=== PATIENT | female | born 1975 | race African-American/Black ===

== ENCOUNTER 2016-05-09 08:29 | Inpatient (IN) ==
[2016-05-09] MEDS ORDERED: ACETAMINOPHEN/CODEINE 300-30 MG TABLET PO STA (09:22)
--- NOTE | 2016-05-09 09:24 | Emergency Department Note ---
Arrival - Arrival ED Nursing Triage Note: PT C/O CHEST WALL PAIN TO LEFT SIDE OF CHEST, WORSE WITH DEEP BREATHS AND PALPATION. ONSET SATURDAY NIGHT. PT HAD APPENDECTOMY BY DR HARRINGTON ON 04/28. PT DUE TO HAVE SUKUMAR OUT TODAY. ALL INCISIONS AND SUKUMAR ARE WELL APPROXIMATED WITH NO REDNESS OR DRAINAGE. NO DRAINAGE ON DRESSING. PT DENIES FEVER. Mode of Arrival: Stretcher Limitations: No Limitations Source: Patient - History of Present Illness Onset (ago): day(s) (2) Severity: moderate Quality: aching <Fareed Viramontes - Last Filed: 05/09/16 09:51> <Michael Arzola - Last Filed: 05/09/16 10:48> - Arrival Chief Complaint: Chest Pain Stated Complaint: CP Time Seen by Provider: 05/09/16 09:19 - History of Present Illness HPI Narrative: This is a 41-year-old black female who complains of left-sided chest discomfort that is worse with deep inspiration and palpation. She states onset was Saturday. Patient has recently had an appendectomy by Dr. Harrington on April 28 and is due to have her sukumar taken out today. Patient denies any fevers but states she has been sweating at night. No other problems noted or reported ( Fareed Viramontes) Allergies/Adverse Reactions: Allergies Allergy/AdvReac Type Severity Reaction Status Date / Time No Known Allergies Allergy Verified 05/09/16 08:40 Home Medications: Home Medications Medication Instructions Recorded Confirmed Type Ciprofloxacin Tab [Cipro Tab] 500 mg PO BID #14 tablet 05/03/16 Rx HYDROcodone/ACETAMIN 7.5-325 1 tablet PO Q6HR #20 tablet 05/03/16 Rx [[place] 7.5-325] Review of System - Review of System 12 point system: reviewed and no additional remarkable complaints except as stated - Review of System Constitutional: Present: as per HPI, night sweats. Absent: chills, diaphoresis , fever Respiratory: Present: as per HPI <Fareed Viramontes - Last Filed: 05/09/16 09:51> Medical,Surgical,& Family Hx - Surgical History Abdominal Surgeries: Surgical HX of: Appendectomy (04/28/2016) - Family History Family History: Reports;: Family Cancer (mom breast cancer), Family Diabetes ( mom), Family Hypertension (mom) Denies;: Family Anesthesia Reaction, Family Heart Disease, Family Psychiatric Problems, Family Stroke - Social History Smoking Status: Smoker, status unknown Frequency of Alcohol Use: None Type of Drug Use: None <Fareed Viramontes - Last Filed: 05/09/16 09:51> Exam - General General appearance: alert, in distress (mod) - Head Head exam: Present: atraumatic, normocephalic, normal inspection - Eye Eye exam: Present: normal appearance, PERRL, EOMI - ENT ENT exam: Present: normal exam - Neck Neck exam: Present: normal inspection, full ROM - Chest Chest inspection: Present: normal inspection, symmetric chest wall rise - Respiratory Respiratory exam: Present: normal lung sounds bilaterally - Cardiovascular Cardiovascular exam: Present: regular rate, normal rhythm, normal heart sounds - Abdominal Exam Abdominal exam: Present: soft, distention (mild), hypoactive bowel sounds, other (Op site looks to be healing well. Wylie are in good position, without fever, erythema or drainage) <Fareed Viramontes - Last Filed: 05/09/16 09:51> Vital Signs: Vital Signs Temperature 98.2 F 05/09/16 08:30 Pulse Rate 97 H 05/09/16 08:30 Respiratory Rate 16 05/09/16 08:30 Blood Pressure 161/106 05/09/16 08:30 O2 Sat by Pulse Oximetry 97 05/09/16 08:30 (Fareed Viramontes) (Michael Arzola) Course <Fareed Viramontes - Last Filed: 05/09/16 09:51> <Michael Arzola - Last Filed: 05/09/16 10:48> Course Narrative: Admit to the hospitalist. (Michael Arzola) - Reevaluation(s) Reevaluation #1: Reevaluation by me at 1025 revealed decreased breath sounds on the left. Patient was also tachycardic and had some abdominal tenderness worse on the left side. Bowel sounds were essentially not present. We will obtain a CAT scan of her abdomen to further evaluate. She will also be admitted to the hospitalist. (Michael Arzola) Results - Diagnostic Findings Procedure: Chest x-ray: image reviewed by me, report reviewed by me (Moderate left pleural eff.) <Fareed Viramontes - Last Filed: 05/09/16 09:51> - Labs CBC & BMP: 05/09/16 09:38 05/09/16 09:38 Lab Results: I have reviewed the patients labs - EKG EKG results: interpreted by TONIO BELTRAN, sinus rhythm <Michael Arzola - Last Filed: 05/09/16 10:48> Disposition <Fareed Viramontes - Last Filed: 05/09/16 09:51> Case discussed with: patient <Michael Arzola - Last Filed: 05/09/16 10:48> Clinical Impression: Pleural effusion, left, Status post appendectomy, Chest pain, Abdominal pain, rule out abdominal abscess Disposition: Still a Patient Condition: Guarded Additional Instructions: Admitted to the hospitalist.
--- NOTE | 2016-05-09 09:27 | EKG Report ---
Stationary ECG Study [facility] ER Test Date: 05/09/2016 8:30:52 AM Pat Name: MERY PACHECO Department: Room: Gender: F Dye Range Tender: : 1975 Requested by: Fareed Viramontes Order Number: [id number] Reading MD: GIFTY REYES Intervals [place] Rate: 84 P: 25 IA: 127 QRS: 10 QRSD: 86 T: 35 QT: 354 QTc: 395 Interpretive Statements SINUS RHYTHM Electronically Signed On 05-09-16 18:34:18 CLINICAL DATA PROGRAMMER by GIFTY REYES [email or web address]
--- NOTE | 2016-05-09 09:39 | XRay Report ---
PA and lateral chest. Indication: Chest pain. Comparison: Outside CT from April 28, 2016. The heart is normal in size. The pulmonary vasculature is normal. Scattered atelectasis has developed at the right lung base. There is now, significant atelectasis, and a moderate pleural effusion at the left lung base which was not present previously. There is gaseous distention of bowel. Impression: Development of prominent left basilar atelectasis and moderate left pleural effusion. Mild atelectasis has developed at the right lung base. Gaseous distention of bowel. PROCEDURE INTERPRETED AT [facility] DEPARTMENT OF RADIOLOGY Final Report Signed by: Dr. Sunshine Gallegos
[2016-05-09] MEDS ORDERED: LEVOFLOXACIN INJ 750 MG in PREMIX 1 EACH IV STA (09:49)
[2016-05-09 09:52] LABS: Basophils # 0.1 10*3/uL (0.0-0.2); Basophils % 0.3 % (0.0-0.8); Eosinophils % 0.2 % (0.00-10.9); Hematocrit 34.5 VOL% (35.7-47.0); Hemoglobin 11.4 GM/DL (12.0-16.0); Immature Granulocytes % 0.7 %; Immature Granulocytes Absolute 0.12 #; Lymphocytes # 1.8 10*3/uL (1.4-4.0); Mean Corpuscular Hemoglobin 25 PG (27-34); Mean Corpuscular Volume 74.5 FL (87-102); Mean Platelet Volume 9.1 FL (9.6-12.0); Monocytes # 1.4 10*3/uL (0.11-0.8); Monocytes % 7.5 % (1.7-12.7); Neutrophils % 81.3 % (38.7-73.9); Platelet Count 828 10*3/uL (130-400); Red Blood Count 4.63 10*6/uL (3.8-5.5); White Blood Count 18.5 10*3/uL (4.5-13.71)
[2016-05-09 09:56] LABS: Apearance,Urine CLEAR (Clear); Bacteria,Urine Occasional /HPF (Few); Bilirubin,Urine Negative (Negative); Blood, Urine Negative (Negative); Glucose,Urine (UA) Negative (Negative); Ketones,Urine 20 mg/dL (Negative); Mucus,Urine Occasional /LPF (Occasional); Nitrite,Urine Negative (Negative); Protein,Urine Negative; RBC,Urine 1 /HPF (0-4); Squamous Epithelial Cell,Urine Occasional /HPF (0-10); Urine Color Yellow (Yellow); Urine Specific Gravity 1.009 (1.001-1.035); Urine Urobilinogen < 2.0 EU/DL (0.2-1.0); WBC,Urine 1 /HPF (0-6)
[2016-05-09] MEDS ORDERED: LEVOFLOXACIN INJ 150 ML IV ONE (09:57)
[2016-05-09] MEDS ORDERED: ACETAMINOPHEN/CODEINE 300-30 MG TABLET ONE (09:58)
[2016-05-09 10:15] LABS: Calcium 8.4 MG/DL (8.5-10.1); Osmolality,Calculated 273.5 MOS/KG (273-304); Potassium 3.8 MMOL/L (3.5-5.1)
[2016-05-09] MEDS ORDERED: ONDANSETRON 4 MG/2 ML VIAL IV PRN (11:21)
--- NOTE | 2016-05-09 11:38 | CT Report ---
EXAM: CT chest PE study DATE: May 09, 2016 COMPARISON: None REASON: Left pleural effusion, generalized abdominal pain TECHNIQUE: Axial images of the chest were obtained after administration of 80 cc of Omnipaque 350 intravenous contrast. Coronal and sagittal reformatted images were also acquired. The study was performed per pulmonary embolism protocol. Total DLP for the CT chest and abdomen pelvis studies was 326.9 mGy*cm. FINDINGS: Pulmonary arteries: Evaluation of the segmental and subsegmental pulmonary arteries is limited in some regions by poor opacification and vascular crowding. However, no convincing pulmonary embolism is identified through the segmental pulmonary arteries. Vascular/heart: The thoracic aorta is normal in size without evidence of dissection. The heart is borderline prominent. No definite pericardial effusion is seen. Lymph nodes: No suspicious mediastinal, hilar or axillary adenopathy is identified. Other mediastinum: Otherwise unremarkable. Chest wall: There is anasarca. Lungs: There is a large amount of left pleural fluid but no significant right pleural fluid. Scattered opacities are present within both lungs, mainly within the lower lobes and lingula. This is especially prominent at the left lower lobe. This likely represents atelectasis, but there could also be pneumonia and pulmonary edema. No pneumothorax is identified. Of note, evaluation for a pulmonary nodule in this setting is difficult, and followup is recommended to confirm resolution. Bones: There is mild degenerative change at the thoracic spine, but no acute osseous process is seen. Upper abdomen: Please see the CT abdomen and pelvis study performed on the same day. IMPRESSION: 1. No evidence of pulmonary embolism. 2. Large left pleural effusion. 3. There are scattered opacities within both lungs, mainly within the lower lobes and lingula. This is especially prominent at the left lower lobe. These opacities likely represent atelectasis, but there could also be pneumonia and pulmonary edema. Followup is recommended to confirm resolution. 4. Borderline cardiomegaly. 5. Anasarca. PROCEDURE INTERPRETED AT [facility] DEPARTMENT OF RADIOLOGY Final Report Signed by: Dr. Dashawn Suárez
--- NOTE | 2016-05-09 11:51 | CT Report ---
Referring physician: Michael Arzola EXAM: CT abdomen and pelvis without contrast DATE: May 09, 2016 COMPARISON: Outside CT abdomen and pelvis without contrast April 28, 2016, CT chest PE study May 09, 2016 REASON: Generalized abdominal pain TECHNIQUE: Axial images of the abdomen and pelvis were obtained without the use of contrast. Coronal and sagittal reformatted images were also provided. FINDINGS: Lower thorax: There is a large amount of left pleural fluid and prominent scattered opacities within both lower lung zones. Please see the CT chest study performed on the same day for further details. ABDOMEN: Liver: There is a 0.9 cm hypodensity within the right hepatic lobe on image 36. Characterization is limited by the lack of IV contrast, but this likely represents a cyst. Gallbladder and bile ducts: The gallbladder is unremarkable. No biliary duct dilatation is present. Pancreas: The pancreas is poorly evaluated due to the lack of IV contrast and adjacent unopacified bowel. It is unremarkable as visualized. Spleen: Unremarkable. Adrenals: Unremarkable. Kidneys and ureters: No hydronephrosis is present, and no renal or ureteral calculi are identified. PELVIS: Bladder: Unremarkable. Reproductive: Evaluation of the uterus is limited, but it appears to be enlarged which may be related to uterine fibroids. Further evaluation could be performed with ultrasound. The ovaries are not identified and are likely obscured. ABDOMEN AND PELVIS: Bowel: There is mild air and moderate stool within the colon, mainly within the right colon. There are also a few prominent loops of small bowel. This could represent partial bowel obstruction or mild ileus. Mild ileus is favored. There is now surgical change within the right lower quadrant, and the patient is likely status post interval appendectomy. There is mild free fluid within the lower abdomen and pelvis as well as mesenteric edema. Evaluation for an abscess is limited by the lack of contrast, but no convincing abscess formation is seen. Evaluation for free air is also limited by unopacified loops of bowel, but no large quantity of free air is identified in this postsurgical patient. Appendix: The appendix is not identified, and the patient maybe status post appendectomy. Vasculature: The abdominal aorta is normal in size. Peritoneum: There is mild free fluid and mesenteric edema within the lower abdomen and pelvis as described above. Lymph nodes: Evaluation for adenopathy is limited by the lack of contrast. No obvious adenopathy is identified. Abdominal/pelvic wall: There is moderate anasarca, and surgical change is seen at the anterior abdominal and pelvic wall. There is a minimal fat-containing umbilical hernia. Bones: No acute osseous process is identified. IMPRESSION: 1. There is surgical change within the right lower quadrant, suggesting interval appendectomy. Mild free fluid and mesenteric edema are seen within the lower abdomen and pelvis. Evaluation for an abscess is limited by the lack of contrast, but no obvious abscess formation is seen. Evaluation for minimal free air is also difficult, but no large quantity of free air is identified in this postsurgical patient. 2. There is mild air and moderate stool within the colon, mainly within the right colon. There are also a few prominent loops of small bowel. This could represent partial bowel obstruction or mild ileus. Mild ileus is favored. 3. Moderate anasarca. 4. Probable right hepatic cyst. 5. The uterus is enlarged, possibly Secondary to uterine fibroids. Further evaluation could be performed with ultrasound. 6. Large amount of left pleural fluid and scattered opacities within both lower lung zones. Please see the CT chest PE study performed on the same day for further details. The CT exam was performed using one or more of the following dose reduction techniques: Automated exposure control and adjustment of the mA and/or kV according to patient size. PROCEDURE INTERPRETED AT [facility] DEPARTMENT OF RADIOLOGY Final Report Signed by: Dr. Dashawn Suárez
[2016-05-09] MEDS ORDERED: INFLUENZA VIRUS VACCINE 0.5 ML SYRINGE IM ONE (13:04)
[2016-05-09] MEDS: SODIUM CHLORIDE 0.9% 1,000 ML IV SCH (13:05)
[2016-05-09] MEDS ORDERED: ENOXAPARIN 40 MG/0.4 ML SYRINGE ONE (13:08)
[2016-05-09] MEDS: PIPERACILLIN/TAZOBACTAM 3,375 MG in SODIUM CHLORIDE 0.9% 100 ML IV SCH ×2 (13:10→21:31)
--- NOTE | 2016-05-09 13:14 | Hospitalist History & Physical ---
Assessment and Plan - Time spent with patient Time spent with patient: Greater than 30 minutes (due to assessment, plan and documentation) (1) Abdominal pain Status: Acute Current Visit: Yes (2) Chest pain Status: Acute Current Visit: Yes (3) Status post appendectomy Status: Acute Current Visit: Yes (4) Pleural effusion, left Status: Acute Assessment and plan: admit and closely monitor NPO for now consult to Dr. Lucio, who performed the appendectomy, to follow for possible illeus blood and urine cultures Start on IV Vanc and Zosyn Check Flu and C-diff hydrate well with NS at 125 DVT prophylaxis venous dopplers routine labs in AM PRN meds further plan and addendum to follow per Dr. Schafer Current Visit: Yes History of Present Illness Chief complaint: shortness of breath, left chest pain, abominal distention History of present illness: Ms. Graham is a 41 year old female who presents to the ER today with shortness of breath and left sided chest pain, primarily under her left breast. She states that this started yesterday and has progressively worsened. She noticed herself being severely short of breath with minimal exertion. She had a laproscopic appendectomy on 04/[address] Lucio. States she has been doing fair since, eating and passing gas. She denies having a normal BM since her surgery, but does say that she has past some thin mucus like stool a few times. We will check this for C-diff. she seems distended on exam and is tender, worse around incision sites. She denies headache, fever, chills, vomiting, diarrhea, dysuria or edema. She denies any prior medical history. Prior to her appy she had only had surgery on her ear. She does not drink or do drugs. She was a daily smoker but has not smoked since her surgery earlier this month. She is noted to have increased respirations but she is maintaining an oxygen saturation of 96% on room air. Chest xray shows a large left pleural effusion, chest ct confirms. she is also noted to have a possible mild illeus on CT of Abdomen. She is awake and alert at this time, no acute distress at present. Home Medications Medication Instructions Recorded Confirmed Type Ciprofloxacin Tab [Cipro Tab] 500 mg PO BID #14 tablet 05/03/16 05/09/16 Rx HYDROcodone/ACETAMIN 7.5-325 1 tablet PO Q6HR #20 tablet 12/22/16 12/28/16 Rx [[place] 7.5-325] Allergies Allergy/AdvReac Type Severity Reaction Status Date / Time No Known Allergies Allergy Verified 05/09/16 08:40 Medical,Surgical,& Family Hx - Surgical History Abdominal Surgeries: Surgical HX of: Appendectomy (04/28/2016) - Family History Family History: Reports;: Family Cancer (mom breast cancer), Family Diabetes ( mom), Family Hypertension (mom) Denies;: Family Anesthesia Reaction, Family Heart Disease, Family Psychiatric Problems, Family Stroke - Social History Smoking Status: Smoker, status unknown Frequency of Alcohol Use: None Type of Drug Use: None Marital Status: Single Lives With:: Alone Functional capacity: independent ambulation 12 point system: reviewed and no additional remarkable complaints except as stated Exam - Constitutional Vitals: Period Temp Pulse Resp BP Sys/Agudelo Pulse Ox Last 24 Hr 98.7 F 90-108 16-21 143-151/90-103 93-97 General appearance: normal weight, no acute distress - Head Head exam: Present: normal inspection, normocephalic - Eye Eye exam: Present: EOMI. Absent: scleral icterus Pupils: Present: KENDRICK, normal accommodation - ENT ENT exam: Present: normal exam, normal oropharynx - Neck Neck exam: Present: normal inspection. Absent: lymphadenopathy - Respiratory Respiratory exam: Present: decreased breath sounds (on left ). Absent: wheezes - Cardiovascular Cardiovascular exam: Present: regular rate and rhythm. Absent: tachycardia - GI/Abdominal GI/Abdominal exam: Present: distended, hypoactive bowel sounds, tenderness ( around incisional sites) - Extremities Exam Extremities exam: Present: normal inspection, full ROM. Absent: edema - Back Exam Back exam: Present: normal inspection. Absent: muscle spasm - Neurological Exam Neurological exam: Present: alert, oriented X3 - Psychiatric Psychiatric exam: Present: normal affect, normal mood - Skin Skin exam: Present: normal color, warm, dry Results - Labs CBC & BMP: 05/09/16 09:38 05/09/16 09:38 Lab Results: I have reviewed the past 24 hour labs - Diagnostic Findings Procedure: CT Abdomen and Pelvis: report reviewed by me (Linda there are surgical changes in the right lower quadrant, suggesting interval appendectomy. Mild free fluid and mesenteric edema are seen within lower abdomen and pelvis. Evaluation for an abscess is limited by the lack of contrast, but no obvious abscess formation is seen. Evaluation for minimal free air is also difficult, but no large quantity of free air is admitted from the postsurgical patient. There is mild area moderate stool within the colon, mainly within the right colon. There are also a few prominent loops of small bowel. This could represent partial small bowel structural noted or. mild ileus mild ileus is favored. 3. Moderate anasarca. 4. Probable right hepatic cyst.. The uterus is enlarged, possibly secondary to uterine fibroids. Further evaluation could be performed ultrasound. 6. Large amount of left pleural fluid and scattered opacities within both lower lung zones. Please see the CT chest PE study performed on the same day for further details.), CT - chest: report reviewed by me (1. No evidence of pulmonary emboli 2. Left large pleural effusion 3. There are scattered opacities within both lungs, mainly in lower lobes and lingula. This is especially prominent at the left lower lobe. His opacities likely represent atelectasis, but there could also be pneumonia and pulmonary edema. Follow-up is recommended to confirm resolution 4. Borderline cardiomegaly 5. Anasarca)
--- NOTE | 2016-05-09 14:06 | Ultrasound Report ---
Referring physician: Alecia Holmes Exam: Bilateral lower extremity venous ultrasound Date: May 09, 2016 Comparison: None Reason: Shortness of breath, recent surgery Technique: Duplex scan of the bilateral lower extremity veins was performed using B-Mode/grayscale imaging and Doppler spectral analysis and color flow. Ultrasound images were captured and stored. Findings: There is no evidence of thrombus within the left or right common femoral veins, saphenous veins, superficial femoral veins or popliteal veins. Normal compression and augmentation are present throughout. Normal color flow and spectral analysis are observed. Impression: No evidence of deep venous thrombosis within either lower extremity. PROCEDURE INTERPRETED AT [facility] DEPARTMENT OF RADIOLOGY Final Report Signed by: Dr. Dashawn Suárez
[2016-05-09] MEDS: MORPHINE 2 MG/1 ML SYRINGE IV PRN ×2 (15:44→21:29)
[2016-05-09] MEDS: VANCOMYCIN INJ 750 MG in SODIUM CHLORIDE 0.9% 250 ML IV SCH (17:14)
--- NOTE | 2016-05-09 18:09 | General Surgery Consult Note ---
Assessment and Plan - Time spent with patient Time spent with patient: Less than 30 minutes (1) Pleural effusion, left Status: Acute Assessment and plan: Impression: 1. Pleural effusion of the left posse secondary to an atelectatic left lobe 2. Status post lap scopic appendectomy 3. No evidence of abdominal abscess 4. Severe constipation. Plan: 1. Get pulmonary look at her for possible bronchoscopy and thoracentesis 2. Attempt to it her bowels functioning at this time. Current Visit: Yes History of Present Illness Chief complaint: some left chest pain and shortness of breath History of present illness: Ms. Graham is a 41 year old female Afro-[place] female who is about 2 weeks from a lap scopic appendectomy with a severely swollen appendix does gangrenous and ruptured at times surgery. She had a drain left in the pelvis for better than a week before was pulled when there was very little drainage present. She went home and no sign of any infection at this time but returned today because of some fever and left chest pain. She is scheduled come to the office became emergency room where chest x-ray showed a left pleural effusion. I was concerned about the possibility of this being an abscess under the diaphragm because of severity of the appendicitis. So a CT scan the abdomen and pelvis was performed which showed some constipation but no evidence of any abscess under the diaphragm. From what I, it looks like there could be an at atelectatic lobe on the lower lobe of the left with some pleural effusion associated with that. We'll get pulmonary to look at her for possible bronchoscopy and possible thoracentesis. At this point observation and IV fluids as well as working on getting her bowels functioning is her main priority. Home Medications Medication Instructions Recorded Confirmed Type Ciprofloxacin Tab [Cipro Tab] 500 mg PO BID #14 tablet 05/03/16 05/09/16 Rx HYDROcodone/ACETAMIN 7.5-325 1 tablet PO Q6HR #20 tablet 05/03/16 05/09/16 Rx [[place] 7.5-325] Allergies Allergy/AdvReac Type Severity Reaction Status Date / Time No Known Allergies Allergy Verified 05/09/16 08:40 Medical,Surgical,& Family Hx - Surgical History Abdominal Surgeries: Surgical HX of: Appendectomy (04/28/2016) - Family History Family History: Reports;: Family Cancer (mom breast cancer), Family Diabetes ( mom), Family Hypertension (mom) Denies;: Family Anesthesia Reaction, Family Heart Disease, Family Psychiatric Problems, Family Stroke - Social History Smoking Status: Smoker, status unknown Frequency of Alcohol Use: None Type of Drug Use: None 12 point system: reviewed and no additional remarkable complaints except as stated Exam - Constitutional Vitals: Period Temp Pulse Resp BP Sys/Agudelo Pulse Ox Last 24 Hr 98.7 F-99.6 F 90-108 16-21 143-151/82-103 93-97 General appearance: mild distress - Head Head exam: Present: normal inspection - ENT ENT exam: Present: normal exam - Neck Neck exam: Present: normal inspection - Respiratory Respiratory exam: Present: decreased breath sounds (on the left base), rales, rhonchi - Cardiovascular Cardiovascular exam: Present: RRR - GI/Abdominal GI/Abdominal exam: Present: distended, hypoactive bowel sounds. Absent: tenderness - Extremities Exam Extremities exam: Present: normal inspection - Neurological Exam Neurological exam: Present: alert, oriented X3, CN II-XII intact - Skin Skin exam: Present: normal color, warm, dry Results - Labs CBC & BMP: 05/09/16 09:38 05/09/16 09:38 Lab Results: I have reviewed the past 24 hour labs Specialty Discharge - Follow Up or Referrals - Discharge Medications No Action Ciprofloxacin Tab [Cipro Tab] 500 mg PO BID #14 tablet HYDROcodone/ACETAMIN 7.5-325 [[place] 7.5-325] 1 tablet PO Q6HR #20 tablet
[2016-05-09] MEDS ORDERED: BISACODYL 5 MG TABLET PO ONE (18:13)
[2016-05-09 19:56] LABS: Bilirubin,Total 0.5 MG/DL (0.2-1.0); Calcium 7.9 MG/DL (8.5-10.1); Osmolality,Calculated 278.1 MOS/KG (273-304); Potassium 3.3 MMOL/L (3.5-5.1); Total Protein 6.7 G/DL (6.4-8.3)
[2016-05-09] MEDS: ENOXAPARIN 40 MG/0.4 ML SYRINGE SUBCUT SCH (21:33)
[2016-05-09] MEDS: DOCUSATE SODIUM 100 MG CAPSULE PO SCH (21:45)
[2016-05-10] MEDS: MORPHINE 2 MG/1 ML SYRINGE IV PRN (01:22)
[2016-05-10] MEDS: VANCOMYCIN INJ 750 MG in SODIUM CHLORIDE 0.9% 250 ML IV SCH ×2 (03:29→17:25)
[2016-05-10] MEDS: PIPERACILLIN/TAZOBACTAM 3,375 MG in SODIUM CHLORIDE 0.9% 100 ML IV SCH ×3 (05:19→20:12)
[2016-05-10 05:20] LABS: Basophils % 0.2 % (0.0-0.8); Eosinophils # 0.1 10*3/uL (0.0-0.87); Eosinophils % 0.8 % (0.00-10.9); Hematocrit 29.6 VOL% (35.7-47.0); Hemoglobin 9.5 GM/DL (12.0-16.0); Immature Granulocytes % 0.5 %; Immature Granulocytes Absolute 0.07 #; Lymphocytes # 1.8 10*3/uL (1.4-4.0); Lymphocytes % 14.3 % (21.3-54.2); Mean Corpuscular HGB Conc 32.1 GM/DL (32-36); Mean Corpuscular Hemoglobin 24 PG (27-34); Mean Corpuscular Volume 75.9 FL (87-102); Mean Platelet Volume 9.4 FL (9.6-12.0); Monocytes # 1.5 10*3/uL (0.11-0.8); Monocytes % 11.7 % (1.7-12.7); Neutrophils # 9.3 10*3/uL (1.4-7.4); Neutrophils % 72.5 % (38.7-73.9); Platelet Count 869 10*3/uL (130-400); Red Cell Distribution Width 18.5 % (9.3-17.3); White Blood Count 12.9 10*3/uL (4.5-13.71)
[2016-05-10 05:46] LABS: Calcium 8.1 MG/DL (8.5-10.1); Osmolality,Calculated 278.1 MOS/KG (273-304); Potassium 4.1 MMOL/L (3.5-5.1)
--- NOTE | 2016-05-10 07:24 | Physician Query Form ---
CLICK EDIT DOCUMENT TO SELECT QUERY ANSWER --> OK --> SIGN Raine Vega RN, CCDS Certified Clinical [place] W) [phone] (f) [phone] [email or web address] PROVIDERS: Make your selection(s) from the choices in EACH section by typing an "x" and enter comments in the comment section. Please use your independent medical judgment in providing your response. This request does not imply that any particular answer is desired or expected. CLINICAL INDICATORS: (Providers should not edit this section) The medical record indicates that the patient was admitted with a Pleural Effusion and recently had appendectomy on the . In your clinical opinion can you please clarify if the pleural effusion is ? Please clarify the following: ( ) The above is an inherent, integral or routinely potential/expected occurrence of surgery (not a complication) ( ) The above was an inadvertent, unintended, iatrogenic, or unexpected occurrence of surgery (complication) ( ) The above is a complication but not due to the surgery, specify cause: ( ) Other, please specify: (x ) Clinically unable to determine COMMENTS: Use of terms such as suspected, likely, or probable (associated with a specific diagnosis that is being evaluated, monitored, or treated as if it exists) are acceptable and can be restated in the discharge summary if not ruled out. MTDD
--- NOTE | 2016-05-10 07:37 | XRay Report ---
XR chest 1V portable Indication: SOB Comparison: Chest x-ray dated May 09, 2016 Technique: Single frontal view of the chest Findings: Cardiomediastinal silhouette remains partially obscured. Continued moderate left-sided pleural effusion with probable underlying atelectasis/consolidation. Minimal right basilar atelectasis. Osseous and surrounding soft tissue structures appear grossly unchanged. IMPRESSION: No significant interval change. PROCEDURE INTERPRETED AT [facility] DEPARTMENT OF RADIOLOGY Final Report Signed by: Dr René Gaines
--- NOTE | 2016-05-10 08:15 | General Surgery Progress Note ---
Assessment and Plan - Time spent with patient Time spent with patient: Less than 30 minutes (1) Pleural effusion, left Status: Acute Assessment and plan: Impression: 1. Pleural effusion of the left posse secondary to an atelectatic left lobe 2. Status post lap scopic appendectomy 3. No evidence of abdominal abscess 4. Severe constipation. Plan: 1. Get pulmonary look at her for possible bronchoscopy and thoracentesis 2. Attempt to it her bowels functioning at this time. 05/10/2016 Patient is stable still complains of some discomfort on the left side but no significant shortness of breath. Labs look good and stable at this time. Abdomen is soft still mildly distended and bowel sounds are present. Incisions are clean and dry. Still no good bowel movement even with the Dulcolax tabs. Have consulted pulmonary to look at a possibility of bronchoscopy because of the CT scan results looking like it could be atelectatic changes of the left lower lobe. I think be good be sure that there is no mucous plugs blocking it off. Once they have completed this and we need to be a little more aggressive with get her bowels functioning with some enemas and some strong laxatives. Current Visit: Yes Subjective Patient reports: Present: still having pain, tolerating liquids well, no bowel movement, afebrile Exam - Constitutional Vitals: Period Temp Pulse Resp BP Sys/Agudelo Pulse Ox Last 24 Hr 97.8 F-99.6 F 90-108 16-28 132-151/74-103 93-100 General appearance: mild distress - Head Head exam: Present: normal inspection - ENT ENT exam: Present: normal exam - Neck Neck exam: Present: normal inspection - Respiratory Respiratory exam: Present: decreased breath sounds (on the left), rales - Cardiovascular Cardiovascular exam: Present: RRR - GI/Abdominal GI/Abdominal exam: Present: distended (mild), hypoactive bowel sounds, soft, other (incisions are clean and dry.). Absent: tenderness - Extremities Exam Extremities exam: Present: normal inspection - Back Exam Back exam: Present: normal inspection - Neurological Exam Neurological exam: Present: alert, oriented X3, CN II-XII intact - Skin Skin exam: Present: normal color, warm, dry Results - Labs CBC & BMP: 05/10/16 04:37 05/10/16 04:37 Lab Results: I have reviewed the past 24 hour labs Specialty Discharge - Follow Up or Referrals - Discharge Medications No Action Ciprofloxacin Tab [Cipro Tab] 500 mg PO BID #14 tablet HYDROcodone/ACETAMIN 7.5-325 [[place] 7.5-325] 1 tablet PO Q6HR #20 tablet
[2016-05-10] MEDS: DOCUSATE SODIUM 100 MG CAPSULE PO SCH ×2 (10:11→20:11)
--- NOTE | 2016-05-10 11:16 | Pulmonology Consult Note ---
History of Present Illness Chief complaint: Large symptomatic left pleural effusion History of present illness: Ms. Graham is a 41 year old black female from [place] [facility]. I been asked to see her in pulmonary consultation. This patient had removal of a gangrenous appendix on 04/28/2016. Surgery was done by Dr. Lucio. The operative record was removed. There was some spillage of the appendiceal contents. Appendix was very large and swollen and gangrenous. Patient did well postop and was discharged home in good condition. The patient is admitted with left pleuritic chest pain she has a very large left pleural effusion. She complains of shortness of breath because she has knifelike pain when she takes a deep breath. She denies a cough. She says she has not had any infection. She is producing no sputum. There is been no hemoptysis. She also complains of some abdominal pain. This tends to be upper abdomen. Seems to be localized to the left. There is no mass-effect. There is no rebound. Patient does have what appears to be an ileus. The remainder of her review of systems is negative. Allergies. None Home medicines. See below. Patient takes no medicines on a regular basis. Past history. Appendectomy 04/28/2016. CT at that time specifically said no pleural effusions were seen over the lower chest. She did not have a chest x- ray. She apparently has a very large uterus. See report for additional detail. No other known medical problems. Social history. Patient is a full-time employee at [employer]. She smokes less than a pack of cigarettes per day and says she quit smoking 04/28/2016. Family history. Not obtained. CT of the chest done 05/09/2016 has been reviewed. I agree with the interpretation. 1. No pulmonary embolus. 2. Large left pleural effusion. 3. Scattered opacities in both lungs mainly in the lower lungs in the lingula. These are especially prominent left lower lung. Radiologist Dr. Suárez said that these opacities likely represent atelectasis but they could represent pneumonia or pulmonary edema. Follow-up was recommended. 4. Borderline cardiomegaly cardiomegaly 5. Anasarca CT of the abdomen and pelvis. 05/09/2016 1. Surgical changes in the right lower quadrant. Mild free fluid and mesenteric edema in the lower abdomen and pelvis. Evaluation for abscess was limited by lack of contrast. Evaluation for minimal free air was difficult. 2. Mild AR and moderate stool in the colon mainly in the right colon. A few prominent loops of small bowel which could represent a partial bowel obstruction or mild ileus 3. Moderate anasarca 4. Right hepatic cyst 5. Uterus is enlarged. Possibly secondary to uterine fibroids. Further evaluation could be performed with ultrasound. 6. Large amount of left pleural fluid and scattered opacities in both lower lungs zones. Doppler venograms of the lower extremities. 05/09/2016. No deep venous thrombophlebitis. CT of the abdomen and lower chest done 04/28/2016. Acute appendicitis. Report says no pleural fluid seen. Lab. Electrolytes normal. Creatinine is 0.6. BUN is 4. Urinalysis shows no infection. Admit white count was 18,500 with 81 segs and 10 lymphs. This is now decreased to 12,900 with 72.5 segs and 14.3 lymphs and 12 monocytes H&H is 9.5/29.6 with decreased indices and increased red blood cell distribution with. Platelet count is 869,000. Mean platelet volume is low at 9.4. Vital signs. See below Psychiatric. Oriented 3. General. Moderate amount of pain secondary left pleural effusion Eyes face salivary glands lips and tongue are normal. Neck. Symmetrical. No meningismus Lymphatics. No submandibular cervical supraclavicular adenopathy. Arterial and venous exam neck upper and lower extremities are normal. Neurological. Cranial nerves are intact long track motor functions intact. Sensory exam was not done. Gait was not tested. Chest. Splints to the left. Breath sounds are clear Heart. Heart sounds are abnormal. This may be a midsystolic click but I am not sure. Abdomen. Rare bowel sounds. Mild generalized tenderness that might localized to the left upper quadrant. See Dr. Lucio's note. and rectal deferred Extremities. No evidence of deep venous thrombophlebitis. Skin of the face arms and feet show no cancerous or infectious lesions. No other areas were examined except the abdominal surgical wound which appeared to be healing properly. The remainder the physical exam was noncontributory. Impression. 1. Acute left pleural effusion. Etiology undetermined. Patient could have had pneumonia and this could be a parapneumonic effusion but she denies any symptoms of pneumonia. This effusion has developed since CT of the abdomen done 04/28/2016. I think we have to watch for left upper quadrant intra- abdominal abscess. Keep in mind entity such as pancreatitis. 2. Abnormal heart sounds. Etiology undetermined. 3. Large uterus thought to be secondary to fibroids. May eventually need additional workup 4. Tobacco abuse. Stop smoking 04/28/2016. 5. Surgical removal of gangrenous appendix 04/28/2016. Plan. 1. Therapeutic and diagnostic thoracentesis. Patient should have studies sent for cytology, CBC, total protein, LDH, glucose, Gram stain, bacterial cultures, amylase and lipase. 2. Echocardiogram 3. At this point it does not look like the patient needs a fiberoptic bronchoscopy but I will reevaluate with follow-up exam follow-up chest x-ray. 4. Amylase and lipase. 5. BNP 6. See orders Home Medications Medication Instructions Recorded Confirmed Type Ciprofloxacin Tab [Cipro Tab] 500 mg PO BID #14 tablet 05/03/16 05/09/16 Rx HYDROcodone/ACETAMIN 7.5-325 1 tablet PO Q6HR #20 tablet 05/03/16 05/09/16 Rx [[place] 7.5-325] Allergies Allergy/AdvReac Type Severity Reaction Status Date / Time No Known Allergies Allergy Verified 05/09/16 08:40 Exam (Pulmonay) H&P - Constitutional Vitals: Period Temp Pulse Resp BP Sys/Agudelo Pulse Ox Last 24 Hr 97.8 F-99.6 F 90-108 16-28 132-151/74-103 93-100 Medical,Surgical,& Family Hx - Surgical History Abdominal Surgeries: Surgical HX of: Appendectomy (04/28/2016) - Family History Family History: Reports;: Family Cancer (mom breast cancer), Family Diabetes ( mom), Family Hypertension (mom) Denies;: Family Anesthesia Reaction, Family Heart Disease, Family Psychiatric Problems, Family Stroke - Social History Smoking Status: Smoker, status unknown Frequency of Alcohol Use: None Type of Drug Use: None Results - Labs CBC & BMP: 05/10/16 04:37 05/10/16 04:37 Specialty Discharge - Follow Up or Referrals - Discharge Medications No Action Ciprofloxacin Tab [Cipro Tab] 500 mg PO BID #14 tablet HYDROcodone/ACETAMIN 7.5-325 [[place] 7.5-325] 1 tablet PO Q6HR #20 tablet
[2016-05-10 13:06] LABS: % Iron Saturation 5.3 % (18-50); Ferritin 117.9 ng/ml (8-252)
[2016-05-10] MEDS: SODIUM CHLORIDE 0.9% 1,000 ML IV SCH (13:15)
--- NOTE | 2016-05-10 13:59 | ECHO Report ---
Yari Graham Exam Date: 05/10/2016 13:05 Referring Physician: Technologist: Marcela JACKSON Age: 41 Ht (in): Wt (lb): Gender: F Exam Location: [facility] Echo Indications: SOB, Pleural effusion, abd. pain, chest pain, cardiomegaly BP: / HR: Rhythm: Sinus Technical Quality: IMPRESSIONS Normal chamber sizes 1+ concentric LVH Normal LV systolic function with ejection fraction estimated to be 60% without segmental wall motion abnormality Mild mitral valve thickening with 1+ mitral regurgitation Trace to mild tricuspid regurgitation with RVSP 12 mmHg plus RAP MEASUREMENTS (Male / Female) Normal Values 2D ECHO LV Diastolic Diameter PLAX 4.0 cm 4.2 - 5.9 / 3.9 - 5.3 cm LV Systolic Diameter PLAX 3.1 cm LV Fractional Shortening PLAX 22.6 % IVS Diastolic Thickness 1.4 cm 0.6 - 1.0 / 0.6 - 0.9 cm LVPW Diastolic Thickness 0.9 cm 0.6 - 1.0 / 0.6 - 0.9 cm RV Internal Dim ED PLAX 2.1 cm Aortic Root Diameter 2.7 cm LA Systolic Diameter LX 3.8 cm 3.0 - 4.0 / 2.7 - 3.8 cm DOPPLER TR Peak Velocity 176.0 cm/s TR Peak Gradient 12.4 mmHg FINDINGS Left Ventricle Moderately increased septal wall thickness. Normal left ventricular size and systolic function, left ventricular ejection fraction is estimated a Right Ventricle Normal right ventricular size and systolic function. Right Atrium Normal right atrial size. Left Atrium Normal left atrial size. Mitral Valve Mildly thickened mitral valve with mild mitral regurgitation. Aortic Valve Aortic valve sclerosis without stenosis or regurgitation. Tricuspid Valve Morphologically normal tricuspid valve. Trace to mild tricuspid valve regurgitation. Tricuspid regurgitation velocities suggest a PAP of 12.4 mmHg + RAP. Pulmonic Valve Morphologically normal pulmonic valve. Pericardium No pericardial effusion. + pleural effusion. Aorta Normal size aortic root and proximal ascending aorta. Rohit Churchill (Electronically Signed) Final Date: 10 May 2016 13:58
--- NOTE | 2016-05-10 15:15 | XRay Report ---
XR chest post procedure Indication: Status post thoracentesis. Post procedure chest radiograph, 2 views: Inspiratory and expiratory views of the chest were obtained. Small left pleural effusion persists with elevation left hemidiaphragm noted. No pneumothorax shown. There is mild right basilar atelectasis. Heart size is normal. Impression: No evidence complication following left thoracentesis. PROCEDURE INTERPRETED AT [facility] DEPARTMENT OF RADIOLOGY Final Report Signed by: Jorje Angel M.D.
--- NOTE | 2016-05-10 15:16 | Ultrasound Report ---
US thoracentesis Indication: Left pleural effusion. ULTRASOUND-GUIDED THORACENTESIS Description: A formal timeout was performed. Maximum sterile barrier technique was used. A left pleural effusion was identified with ultrasound. The left back was prepped and draped in sterile fashion. Under sonographic guidance, a 6 [place] pigtail catheter was advanced into the effusion using trocar technique. A captured sonographic image documents needle position. The needle was removed. Through the catheter, we obtained a total of 1000 cc of straw-colored, clear fluid. The catheter was removed. A bandage was placed at the puncture site. The patient tolerated the procedure well. Chest radiograph is pending. Impression: Ultrasound-guided thoracentesis. PROCEDURE INTERPRETED AT [facility] DEPARTMENT OF RADIOLOGY Final Report Signed by: Jorje Angel M.D.
--- NOTE | 2016-05-10 16:10 | Hospitalist Progress Note ---
Assessment and Plan (1) Leukocytosis Status: Acute Assessment and plan: 1)elevated WBC- source not clear, concern for abscess beneath diaphragm or pneumonia. On antibiotics, WBC down this morning. afebrile. 2)recent appendectomy- constipated since- enema today may relieve her abdominal pain. 3)Left pleural effusion- fluid analysis, gr stain, culture, pending. appeared transudative. pleuritic chest pain should improve as effusion resolves. Current Visit: Yes (2) Pleural effusion, left Status: Acute Current Visit: Yes (3) Status post appendectomy Status: Acute Current Visit: Yes (4) Abdominal pain Status: Acute Current Visit: Yes Hospitalist: Subjective Interval history: Ms Graham was doing well when I saw her this morning and says she feels a little better. She subsequently had thoracentesis with 1 L of straw colored clear fluid drained. Enema ordered to address her constipation/ileus. Exam - Constitutional Vitals: Period Temp Pulse Resp BP Sys/Agudelo Pulse Ox Last 24 Hr 97.8 F-99.3 F 96-116 16-28 132-164/74-100 97-100 General appearance: no acute distress, under weight - Head Head exam: Present: normocephalic, atraumatic - Eye Eye exam: Present: EOMI. Absent: scleral icterus - Respiratory Respiratory exam: Present: clear to auscultation bilaterally (decreased breath sounds at left base) - Cardiovascular Cardiovascular exam: Present: regular rate and rhythm - GI/Abdominal GI/Abdominal exam: Present: normal bowel sounds, tenderness, soft - Extremities Exam Extremities exam: Absent: edema - Neurological Exam Neurological exam: Present: alert, oriented X3, CN II-XII intact. Absent: motor sensory deficit - Skin Skin exam: Present: warm, dry Results - Labs CBC & BMP: 05/10/16 04:37 05/10/16 04:37 Lab Results: I have reviewed the past 24 hour labs Specialty Discharge - Follow Up or Referrals - Discharge Medications No Action Ciprofloxacin Tab [Cipro Tab] 500 mg PO BID #14 tablet HYDROcodone/ACETAMIN 7.5-325 [[place] 7.5-325] 1 tablet PO Q6HR #20 tablet
[2016-05-10 17:02] LABS: Lymphocytes,Pleural Fluid 9 %; Neutrophils,Pleural Fluid 91 %
[2016-05-10 17:06] LABS: RBC,Pleural Fluid 4862 T/CUMM
[2016-05-10] MEDS: SODIUM PHOSPHATE ENEMA 133 ML BOTTLE RECTAL PRN (18:17)
[2016-05-10] MEDS: ENOXAPARIN 40 MG/0.4 ML SYRINGE SUBCUT SCH (20:11)
[2016-05-11] MEDS: VANCOMYCIN INJ 750 MG in SODIUM CHLORIDE 0.9% 250 ML IV SCH ×2 (04:27→17:00)
[2016-05-11] MEDS: MORPHINE 2 MG/1 ML SYRINGE IV PRN (04:33)
[2016-05-11 05:11] LABS: Basophils # 0.1 10*3/uL (0.0-0.2); Basophils % 0.5 % (0.0-0.8); Eosinophils # 0.1 10*3/uL (0.0-0.87); Eosinophils % 0.6 % (0.00-10.9); Hematocrit 29.5 VOL% (35.7-47.0); Hemoglobin 9.5 GM/DL (12.0-16.0); Immature Granulocytes % 0.6 %; Immature Granulocytes Absolute 0.08 #; Lymphocytes # 1.8 10*3/uL (1.4-4.0); Lymphocytes % 13.1 % (21.3-54.2); Mean Corpuscular HGB Conc 32.2 GM/DL (32-36); Mean Corpuscular Hemoglobin 24 PG (27-34); Mean Corpuscular Volume 75.6 FL (87-102); Mean Platelet Volume 9.2 FL (9.6-12.0); Monocytes # 1.8 10*3/uL (0.11-0.8); Monocytes % 12.5 % (1.7-12.7); Neutrophils # 10.2 10*3/uL (1.4-7.4); Neutrophils % 72.7 % (38.7-73.9); Platelet Count 995 10*3/uL (130-400); Red Cell Distribution Width 18.3 % (9.3-17.3)
[2016-05-11 05:53] LABS: Calcium 7.9 MG/DL (8.5-10.1); Osmolality,Calculated 278.1 MOS/KG (273-304)
[2016-05-11] MEDS: PIPERACILLIN/TAZOBACTAM 3,375 MG in SODIUM CHLORIDE 0.9% 100 ML IV SCH ×3 (06:42→21:23)
--- NOTE | 2016-05-11 08:06 | XRay Report ---
XR chest 2V Indication: Shortness of breath Comparison: Chest x-ray dated May 10, 2016 Technique: Frontal and lateral views of the chest Findings: Cardiomediastinal silhouette appears grossly unchanged. Interval increased left lower lung atelectasis/consolidation and pleural fluid which is small volume. There is continued elevation of left hemidiaphragm. Mild interval increased hazy opacification within the right lung base may reflect atelectasis or pneumonia. Osseous and surrounding soft tissue structures appear grossly unchanged. IMPRESSION: As above. PROCEDURE INTERPRETED AT [facility] DEPARTMENT OF RADIOLOGY Final Report Signed by: Dr René Gaines
[2016-05-11] MEDS: DOCUSATE SODIUM 100 MG CAPSULE PO SCH ×2 (08:14→20:22)
--- NOTE | 2016-05-11 09:31 | General Surgery Progress Note ---
Assessment and Plan - Time spent with patient Time spent with patient: Less than 30 minutes (1) Pleural effusion, left Status: Acute Assessment and plan: Impression: 1. Pleural effusion of the left posse secondary to an atelectatic left lobe 2. Status post lap scopic appendectomy 3. No evidence of abdominal abscess 4. Severe constipation. Plan: 1. Get pulmonary look at her for possible bronchoscopy and thoracentesis 2. Attempt to it her bowels functioning at this time. 05/10/2016 Patient is stable still complains of some discomfort on the left side but no significant shortness of breath. Labs look good and stable at this time. Abdomen is soft still mildly distended and bowel sounds are present. Incisions are clean and dry. Still no good bowel movement even with the Dulcolax tabs. Have consulted pulmonary to look at a possibility of bronchoscopy because of the CT scan results looking like it could be atelectatic changes of the left lower lobe. I think be good be sure that there is no mucous plugs blocking it off. Once they have completed this and we need to be a little more aggressive with get her bowels functioning with some enemas and some strong laxatives. 05/11/2016 Patient is progressing slowly with the temporal about 100. Her abdomen remains fairly soft with hypoactive bowel sounds now have had some bowel movements at this time. Clips are out in the abdomen is softer and we will go ahead and work on getting her bowels more functional. She continues to have some atelectatic changes of the left lower lobe but no bronchoscopy at this time. She's had thoracentesis but I don't think eschar make a big difference. Hope and pulmonary we'll look at doing a bronchoscopy soon to take get that lobe open. Current Visit: Yes Subjective Patient reports: Present: pain is less, tolerating a regular diet, bowel movement, fever Exam - Constitutional Vitals: Period Temp Pulse Resp BP Sys/Agudelo Pulse Ox Last 24 Hr 98.5 F-100.6 F 92-116 20-26 137-164/79-100 97-100 General appearance: mild distress - Head Head exam: Present: normal inspection - ENT ENT exam: Present: normal exam - Neck Neck exam: Present: normal inspection - Respiratory Respiratory exam: Present: decreased breath sounds (left chest), rales, rhonchi - Cardiovascular Cardiovascular exam: Present: RRR - GI/Abdominal GI/Abdominal exam: Present: hypoactive bowel sounds, soft. Absent: tenderness - Extremities Exam Extremities exam: Present: normal inspection - Neurological Exam Neurological exam: Present: alert, oriented X3, CN II-XII intact - Skin Skin exam: Present: normal color, warm, dry Results - Labs CBC & BMP: 05/11/16 03:37 05/11/16 03:37 Lab Results: I have reviewed the past 24 hour labs Specialty Discharge - Follow Up or Referrals - Discharge Medications No Action Ciprofloxacin Tab [Cipro Tab] 500 mg PO BID #14 tablet HYDROcodone/ACETAMIN 7.5-325 [[place] 7.5-325] 1 tablet PO Q6HR #20 tablet
[2016-05-11] MEDS ORDERED: MAGNESIUM CITRATE 300 ML BOTTLE PO ONE (09:32)
[2016-05-11] MEDS: MINERAL OIL 30 ML UDCUP PO SCH ×2 (10:29→17:00)
--- NOTE | 2016-05-11 12:14 | Pulmonology Progress Note ---
Pulmonary - PN: Subj Interval history: This is a 41-year-old black female who works at [employer] in [facility]. I saw her in pulmonary consultation 05/10/2016. She had been here 04/28/2016 with a gangrenous appendix was surgically removed by Dr. Lucio. There was some spillage of contents from the grossly swollen and gangrenous appendix. This patient presented this time with an ileus and a painful left pleural effusion. CT scan is abnormal showing a good bit of mesenteric edema. The patient had a thoracentesis on 05/10/2016. This was an exudate based on the proteins. Glucoses were the same as her blood glucoses and the pH was 8. This does not appear to be infected and probably originates from below the diaphragm. The patient's lung is reexpanded with removal of most of the pleural effusion. She does have some elevation of her left hemidiaphragm and this appears to be secondary to a large dilated stomach.05/11/2016. At the time of my consultation on 05/10/2016 I felt these were her main problems . 1. Acute left pleural effusion. Etiology undetermined. Patient could have had pneumonia and this could be a parapneumonic effusion but she denies any symptoms of pneumonia. This effusion has developed since CT of the abdomen done 04/28/2016. I think we have to watch for left upper quadrant intra- abdominal abscess. Keep in mind entity such as pancreatitis. Thoracentesis done 05/10/2016 showed an exudate without any evidence of infection. Cytologies , Gram stain, bacterial cultures are pending. 2. Abnormal heart sounds. Etiology undetermined. Echocardiogram done 2015 showed mild left ventricular hypertrophy ejection fraction of 60% and mild mitral regurgitation. 3. Large uterus thought to be secondary to fibroids. May eventually need additional workup 4. Tobacco abuse. Stop smoking 04/28/2016. 5. Surgical removal of gangrenous appendix 04/28/2016. Physical exam. Vital signs. See below General. No apparent distress talkative. Still some sharp pleuritic-like pains over the left lower chest but these are markedly improved. Psychiatric. Oriented 3 Neurologic. Cranial nerves are intact. Long track motor functions intact Eyes, face, salivary glands, lips and tongue are normal. Neck. Symmetrical. No meningismus Lymphatics. No submandibular cervical supraclavicular adenopathy. Chest. Clear Heart. Grade 1.5 over 6 systolic ejection murmur at the left sternal border. I do not hear radiation. Patient appears to have a midsystolic click Abdomen. Postsurgical. Slightly distended. Extremities. Nothing to suggest deep venous thrombophlebitis. 1.. Note the Doppler venograms of the lower extremities showed no evidence of deep venous thrombophlebitis. 2. Note CT of the chest showed no evidence of pulmonary emboli. The remainder of the physical exam is noncontributory. Plan. 1. Thoracentesis fluid is an exudate. Please check cytology, Gram stain, bacterial cultures. I do not think this is infected. Pleural fluid amylase and lipase were negative 2. I suspect the pleural effusion will shank turner to originate from something below the left diaphragm. Continue antibiotics. Watch for abscess. Admit white count was 18,500 with 81 segs. This is dropped to 14,000 with 73 segs, 13 lymphs, 12.5 monocytes. 3. Patient appears to have an ileus. This seems to be improving. Watch closely. She is a has a dilated stomach or dilated colon at the splenic flexure. 4. There is still a small amount of pleural effusion. There does not appear to be an infiltrate. What was seen on CT appears to be atelectasis secondary to pleural effusion. Benign nodules were noted. At the present time patient does not need a fiberoptic bronchoscopy. 5. Down [address] the patient will need follow-up chest x-ray. 6. This patient has an abnormal uterus. I am not sure whether not this is being followed. Exam (Progress Note) - Constitutional Vitals: Period Temp Pulse Resp BP Sys/Agudelo Pulse Ox Last 24 Hr 98.2 F-100.6 F 92-116 20-26 133-164/79-100 97-100 Results - Labs CBC & BMP: 05/11/16 03:37 05/11/16 03:37 Specialty Discharge - Follow Up or Referrals - Discharge Medications No Action Ciprofloxacin Tab [Cipro Tab] 500 mg PO BID #14 tablet HYDROcodone/ACETAMIN 7.5-325 [[place] 7.5-325] 1 tablet PO Q6HR #20 tablet
[2016-05-11] MEDS: SODIUM CHLORIDE 0.9% 1,000 ML IV SCH (12:52)
--- NOTE | 2016-05-11 13:46 | Hospitalist Progress Note ---
Assessment and Plan (1) Leukocytosis Status: Acute Assessment and plan: 1)elevated WBC- source not clear, concern for abscess beneath diaphragm or pneumonia. On antibiotics, WBC down this morning. afebrile. 2)recent appendectomy- constipated since- enema today may relieve her abdominal pain. 3)Left pleural effusion- fluid analysis, gr stain, culture, all look transudative. . pleuritic chest pain should improve as effusion resolves. try incentive spirometry to help with associated atelectasis. 4)ileus- good results with enema now drinking mag citrate. stomach distnded on CXR, but eating regular food for lunch so far. Current Visit: Yes (2) Pleural effusion, left Status: Acute Current Visit: Yes (3) Status post appendectomy Status: Acute Current Visit: Yes (4) Abdominal pain Status: Acute Current Visit: Yes Hospitalist: Subjective Interval history: Ms Graham is feeling a bit better today but still has pain with cough or deep insp on left chest/abdomen. She has been afebrile and WBC coming down. She is eating regular food for lunch. Good results from enema yesterday. Exam - Constitutional Vitals: Period Temp Pulse Resp BP Sys/Agudelo Pulse Ox Last 24 Hr 98.2 F-100.6 F 92-116 20-26 133-164/79-100 97-100 General appearance: no acute distress, under weight - Eye Eye exam: Present: EOMI. Absent: scleral icterus - Respiratory Respiratory exam: Present: clear to auscultation bilaterally - Cardiovascular Cardiovascular exam: Present: regular rate and rhythm - GI/Abdominal GI/Abdominal exam: Present: normal bowel sounds, soft - Extremities Exam Extremities exam: Absent: edema - Neurological Exam Neurological exam: Present: alert, oriented X3, CN II-XII intact. Absent: motor sensory deficit - Skin Skin exam: Present: warm, dry Results - Labs CBC & BMP: 05/11/16 03:37 05/11/16 03:37 Lab Results: I have reviewed the past 24 hour labs Specialty Discharge - Follow Up or Referrals - Discharge Medications No Action Ciprofloxacin Tab [Cipro Tab] 500 mg PO BID #14 tablet HYDROcodone/ACETAMIN 7.5-325 [[place] 7.5-325] 1 tablet PO Q6HR #20 tablet
--- NOTE | 2016-05-11 14:47 | Ultrasound Report ---
Referring Physician: Alecia Schafer Exam: US pelvic complete Date: May 11, 2016 Reason: Large uterus on CT Comparison: CT abdomen and pelvis without contrast May 09, 2016 Technique: Transabdominal grayscale ultrasound images of the pelvis were obtained. Ultrasound images were captured and stored. Findings: The uterus is anteverted and measures 12.1 x 9.1 x 9.1 cm. There is a large round heterogeneous mass at the anterior aspect of the uterus. This is concerning for a uterine fibroid with central necrosis and measures 6.6 x 5.9 x 5.5 cm. It could be intramural or submucosal. This probable fibroid obscures the endometrium. The right ovary measures 2.9 x 1.8 x 1.7 cm, and the left ovary measures 4.9 x 3.9 x 3.1 cm. There is a 1.6 x 1.6 x 1.4 cm simple cyst at the right ovary. Vascular flow is seen at both ovaries. There is a small amount of free fluid within the pelvis which appears complex. It could contain fluid debris or blood products. Impression: 1. 6.6 cm uterine fibroid. 2. Small amount of free fluid within the pelvis. This fluid has a complex appearance and could contain debris or blood products. 3. The left ovary is mildly enlarged, but a discrete ovarian lesion is difficult to identify. Vascular flow is seen at the left ovary. PROCEDURE INTERPRETED AT [facility] DEPARTMENT OF RADIOLOGY Final Report Signed by: Dr. Dashawn Suárez
[2016-05-11] MEDS: ENOXAPARIN 40 MG/0.4 ML SYRINGE SUBCUT SCH (20:22)
[2016-05-12] MEDS: MINERAL OIL 30 ML UDCUP PO SCH ×3 (01:27→16:54)
[2016-05-12] MEDS: VANCOMYCIN INJ 750 MG in SODIUM CHLORIDE 0.9% 250 ML IV SCH ×2 (04:10→16:51)
[2016-05-12 04:45] LABS: Basophils % 0.3 % (0.0-0.8); Eosinophils # 0.1 10*3/uL (0.0-0.87); Hematocrit 26.2 VOL% (35.7-47.0); Hemoglobin 8.3 GM/DL (12.0-16.0); Immature Granulocytes % 0.4 %; Immature Granulocytes Absolute 0.04 #; Lymphocytes # 1.9 10*3/uL (1.4-4.0); Lymphocytes % 19.6 % (21.3-54.2); Mean Corpuscular HGB Conc 31.7 GM/DL (32-36); Mean Corpuscular Hemoglobin 24 PG (27-34); Mean Corpuscular Volume 75.3 FL (87-102); Mean Platelet Volume 8.9 FL (9.6-12.0); Monocytes # 1.4 10*3/uL (0.11-0.8); Monocytes % 14.4 % (1.7-12.7); Neutrophils # 6.3 10*3/uL (1.4-7.4); Neutrophils % 64.3 % (38.7-73.9); Platelet Count 958 10*3/uL (130-400); Red Blood Count 3.48 10*6/uL (3.8-5.5); Red Cell Distribution Width 18.1 % (9.3-17.3); White Blood Count 9.7 10*3/uL (4.5-13.71)
[2016-05-12] MEDS: PIPERACILLIN/TAZOBACTAM 3,375 MG in SODIUM CHLORIDE 0.9% 100 ML IV SCH ×3 (05:56→20:54)
[2016-05-12 06:02] LABS: Elliptocytes 1+; Platelet Estimate Increased; Target Cells Few
[2016-05-12 06:03] LABS: Hypochromasia 1+
[2016-05-12] MEDS: DOCUSATE SODIUM 100 MG CAPSULE PO SCH ×2 (08:22→20:54)
--- NOTE | 2016-05-12 09:20 | Hospitalist Progress Note ---
Assessment and Plan - Time spent with patient Time spent with patient: Greater than 30 minutes (1) Leukocytosis Status: Acute Assessment and plan: Patient continues to improve and her leukocytosis is resolving. We'll continue current course and await further recommendations from consultants. Current Visit: Yes (2) Pleural effusion, left Status: Acute Assessment and plan: Continue current course of management. Await further pulmonary recommendations. We'll follow-up chest x-ray in the a.m. Current Visit: Yes (3) Status post appendectomy Status: Chronic Current Visit: Yes Hospitalist: Subjective Interval history: Patient is doing well today still has some discomfort in her left lower chest. She denies any increasing shortness of breath, fever, chills. She is tolerating her diet without nausea or vomiting and is having normal bowel movements. Exam - Constitutional Vitals: Period Temp Pulse Resp BP Sys/Agudelo Pulse Ox Last 24 Hr 96.1 F-99.1 F 89-109 18-22 121-162/73-99 98-100 General appearance: no acute distress - Head Head exam: Present: normocephalic, atraumatic - Eye Eye exam: Present: EOMI Pupils: Present: KENDRICK - ENT ENT exam: Present: normal oropharynx - Neck Neck exam: Absent: lymphadenopathy, meningismus, tenderness, thyromegaly - Respiratory Respiratory exam: Present: clear to auscultation bilaterally, decreased breath sounds (decreased breath sounds at left base) - Cardiovascular Cardiovascular exam: Present: regular rate and rhythm. Absent: systolic murmur , tachycardia - GI/Abdominal GI/Abdominal exam: Present: normal bowel sounds, soft. Absent: distended, mass , tenderness, rebound - Extremities Exam Extremities exam: Absent: calf tenderness, edema - Back Exam Back exam: Present: normal inspection - Neurological Exam Neurological exam: Present: alert, oriented X3, CN II-XII intact. Absent: motor sensory deficit - Psychiatric Psychiatric exam: Present: normal affect, normal mood. Absent: agitated, anxious - Skin Skin exam: Present: warm, dry. Absent: erythema, rash Results - Labs CBC & BMP: 05/12/16 04:16 05/11/16 03:37 Lab Results: I have reviewed the past 24 hour labs - Diagnostic Findings Procedure: Ultrasound: report reviewed by me Specialty Discharge - Follow Up or Referrals - Discharge Medications No Action Ciprofloxacin Tab [Cipro Tab] 500 mg PO BID #14 tablet HYDROcodone/ACETAMIN 7.5-325 [[place] 7.5-325] 1 tablet PO Q6HR #20 tablet
[2016-05-12] MEDS: SODIUM CHLORIDE 0.9% 1,000 ML IV SCH ×2 (11:51→20:08)
--- NOTE | 2016-05-12 12:19 | Consultation ---
Assessment and Plan (1) Fibroid, uterine Status: Acute Current Visit: Yes (2) Anemia due to chronic blood loss Status: Acute Current Visit: Yes (3) Infertility of tubal origin Status: Acute Current Visit: Yes History of Present Illness - Data of Consult Patient: new to practice Consult date: 05/12/16 Requesting Physician: Dr. Ku - Consult Narrative Reason for consult: uterine enlargement, severe anemia History of present illness: Ms. Graham is a 41 year old female was admitted to the hospital for severe lower abdominal pain and diagnosed with acute appendicitis. She underwent laparoscopic appendectomy which confirmed a necrotic appendix. As part of her evaluation she was discovered to be anemic on admission and had a history of heavy painful periods and infertility. Questioning confirms that she had a unremarkable with menarche and early development. She had used contraception during her early adult years without complications other than some breakthrough bleeding on Depo-Provera. Her periods assents remained fairly regular, rarely going beyond 1 month without having an apparently normal but heavy menses. She has gone without contraception for approximately 10 or more years without becoming . She denies a history of pelvic inflammatory disease but does admit unspecified STDs. CC: Nancie Bass - Home Medications and Allergies Home Medications: Home Medications Medication Instructions Recorded Confirmed Type Ciprofloxacin Tab [Cipro Tab] 500 mg PO BID #14 tablet 05/03/16 05/09/16 Rx HYDROcodone/ACETAMIN 7.5-325 1 tablet PO Q6HR #20 tablet 05/03/16 05/09/16 Rx [[place] 7.5-325] Allergies/Adverse Reactions: Allergies Allergy/AdvReac Type Severity Reaction Status Date / Time No Known Allergies Allergy Verified 05/09/16 08:40 - Constitutional Constitutional: Absent: fatigue, lethargy, night sweats, weakness, weight gain, weight loss - EENT Eyes: Absent: blurry vision, loss of vision Ears: Present: as per HPI. Absent: decreased hearing - Cardiovascular Cardiovascular: Absent: chest pain at rest, diaphoresis, dyspnea - Respiratory Respiratory: Absent: cough, dyspnea, hemoptysis, wheezing - Gastrointestinal Gastrointestinal: Present: abdominal pain, bloating. Absent: constipation, cramping, diarrhea, nausea, vomiting - Genitourinary Genitourinary: Present: abnormal vaginal bleeding, menorrhagia - Musculoskeletal Musculoskeletal: Absent: arthralgias, back pain, muscle weakness, myalgias - Neurological Neurological: Absent: convulsions, dizziness, paresthesias, syncope - Psychiatric Psychiatric: Absent: anxiety, auditory hallucinations - Endocrine Endocrine: Absent: cold intolerance, heat intolerance, polydipsia, polyphagia, polyuria Medical,Surgical,& Family Hx - Surgical History Abdominal Surgeries: Surgical HX of: Appendectomy (04/28/2016) - Family History Family History: Reports;: Family Cancer (mom breast cancer), Family Diabetes ( mom), Family Hypertension (mom) Denies;: Family Anesthesia Reaction, Family Heart Disease, Family Psychiatric Problems, Family Stroke - Social History Smoking Status: Smoker, status unknown Frequency of Alcohol Use: None Type of Drug Use: None Exam - Constitutional Vitals: Period Temp Pulse Resp BP Sys/Agudelo Pulse Ox Last 24 Hr 96.1 F-99.1 F 81-106 18-22 121-158/73-99 97-100 General appearance: no acute distress - Head Head exam: Present: normal inspection - Eye Pupils: Present: KENDRICK - ENT ENT exam: Present: normal exam - Neck Neck exam: Present: normal inspection - Respiratory Respiratory exam: Present: rales, rhonchi, wheezes. Absent: accessory muscle use - Cardiovascular Cardiovascular exam: Present: regular rate and rhythm - GI/Abdominal GI/Abdominal exam: Present: distended, guarding, mass, organomegaly (uterus palpable 3 fingers above the pubic bone.), tenderness, soft, other (vaginal bimanual exam confirms this mass to be a fibroid uterus measuring approximately 12-14 weeks in size, with gross irregularities just to of fibroid tumors. The cervix is palpated in the deep pelvis and feels grossly normal. Neither adnexa couldn't be palpated.) Results - Labs CBC & BMP: 05/12/16 04:16 05/11/16 03:37 Specialty Discharge - Follow Up or Referrals - Speciality Discharge Instructions OBGYN Instructions: The chances of this patient becoming minimal considering that she is 41 years old with large fibroids, a probable history of STDs with tubal occlusion, and up to 10 years unprotected sex without conception. Suspect myomectomies would not improve chances and probably just destroy the uterus. Due to history of heavy painful menses with chronic blood loss anemia we have discussed the possiblitiy of hysterectomy with ovarian preservation. Advised her to follow up with me in office after discharge to complete her evaulation with a pap smear. - Discharge Medications No Action Ciprofloxacin Tab [Cipro Tab] 500 mg PO BID #14 tablet HYDROcodone/ACETAMIN 7.5-325 [[place] 7.5-325] 1 tablet PO Q6HR #20 tablet
--- NOTE | 2016-05-12 12:21 | General Surgery Progress Note ---
Assessment and Plan (1) Abdominal pain Status: Acute Assessment and plan: Continue current bowel regimen. Current Visit: Yes Subjective Patient reports: Present: no new complaints, pain is less, flatus, bowel movement, afebrile Exam - Constitutional Vitals: Period Temp Pulse Resp BP Sys/Agudelo Pulse Ox Last 24 Hr 96.1 F-99.1 F 81-106 18-22 121-158/73-99 97-100 General appearance: no acute distress, under weight - Head Head exam: Present: normal inspection, normocephalic - Eye Eye exam: Present: EOMI Pupils: Present: KENDRICK - ENT ENT exam: Present: normal exam Mouth exam: Present: normal external inspection, normal voice - Neck Neck exam: Present: normal inspection, trachea midline - Respiratory Respiratory exam: Absent: accessory muscle use, prolonged expiratory phase - Cardiovascular Cardiovascular exam: Absent: tachycardia - Neurological Exam Neurological exam: Present: alert, oriented X3 Results - Labs CBC & BMP: 05/12/16 04:16 05/11/16 03:37 Specialty Discharge - Follow Up or Referrals - Discharge Medications No Action Ciprofloxacin Tab [Cipro Tab] 500 mg PO BID #14 tablet HYDROcodone/ACETAMIN 7.5-325 [[place] 7.5-325] 1 tablet PO Q6HR #20 tablet
[2016-05-12] MEDS: ENOXAPARIN 40 MG/0.4 ML SYRINGE SUBCUT SCH (20:54)
[2016-05-13] MEDS: MINERAL OIL 30 ML UDCUP PO SCH ×3 (00:41→16:20)
[2016-05-13] MEDS: SODIUM CHLORIDE 0.9% 1,000 ML IV SCH ×3 (00:46→12:15)
[2016-05-13] MEDS: VANCOMYCIN INJ 750 MG in SODIUM CHLORIDE 0.9% 250 ML IV SCH ×2 (03:32→16:19)
[2016-05-13] MEDS: PIPERACILLIN/TAZOBACTAM 3,375 MG in SODIUM CHLORIDE 0.9% 100 ML IV SCH ×3 (05:49→20:42)
[2016-05-13] MEDS: DOCUSATE SODIUM 100 MG CAPSULE PO SCH ×2 (08:28→20:01)
--- NOTE | 2016-05-13 09:57 | Hospitalist Progress Note ---
Assessment and Plan - Time spent with patient Time spent with patient: Less than 30 minutes (1) Leukocytosis Status: Acute Assessment and plan: 05/12/16: Patient continues to improve and her leukocytosis is resolving. We' ll continue current course and await further recommendations from consultants. 05/13/16: We'll follow up CBC in the a.m. Current Visit: Yes (2) Pleural effusion, left Status: Acute Assessment and plan: 05/12/16: Continue current course of management. Await further pulmonary recommendations. We'll follow-up chest x-ray in the a.m. 05/13/16: Chest x-ray has been reviewed. We'll continue current IV antibiotics. Will await further recommendations from pulmonary. Blood cultures and pleural fluid cultures have been negative thus far. Current Visit: Yes (3) Status post appendectomy Status: Chronic Current Visit: Yes Hospitalist: Subjective Interval history: Patient states that she feels better today. She is tolerating her diet and having bowel movements without any abdominal pain. She continues to have some cough with minimal sputum production and associated left lower chest discomfort with the cough. Exam - Constitutional Vitals: Period Temp Pulse Resp BP Sys/Agudelo Pulse Ox Last 24 Hr 97.6 F-100.2 F 80-85 18-22 126-153/75-92 95-100 General appearance: no acute distress - Head Head exam: Present: normocephalic, atraumatic - Eye Eye exam: Present: EOMI Pupils: Present: KENDRICK - ENT ENT exam: Present: normal oropharynx - Neck Neck exam: Absent: lymphadenopathy, meningismus, tenderness, thyromegaly - Respiratory Respiratory exam: Present: other (decreased breath sounds in the left base) - Cardiovascular Cardiovascular exam: Present: regular rate and rhythm. Absent: tachycardia - GI/Abdominal GI/Abdominal exam: Present: normal bowel sounds, soft. Absent: mass, tenderness , rebound - Extremities Exam Extremities exam: Absent: calf tenderness, edema - Back Exam Back exam: Present: normal inspection - Neurological Exam Neurological exam: Present: alert, oriented X3, CN II-XII intact. Absent: motor sensory deficit - Psychiatric Psychiatric exam: Present: normal affect, normal mood. Absent: agitated, anxious - Skin Skin exam: Present: warm, dry. Absent: erythema, rash Results - Labs CBC & BMP: 05/12/16 04:16 12/30/16 03:37 Lab Results: I have reviewed the past 24 hour labs - Diagnostic Findings Procedure: Chest x-ray: image reviewed by me Specialty Discharge - Follow Up or Referrals - Discharge Medications No Action Ciprofloxacin Tab [Cipro Tab] 500 mg PO BID #14 tablet HYDROcodone/ACETAMIN 7.5-325 [[place] 7.5-325] 1 tablet PO Q6HR #20 tablet
--- NOTE | 2016-05-13 12:47 | XRay Report ---
History: Pleural effusion Date: 05/13/2016 Study: Chest x-ray PA and lateral Comparison exam: Chest x-ray May 11, 2016 The cardiomediastinal silhouette is unchanged. The pulmonary vasculature is not engorged. The left basilar pleural effusion is minimally increased. The left lower lobe atelectasis/infiltrate is similar. There is slightly improved aeration in the right base. The osseous structures are unchanged. Impression: Mildly increased left pleural effusion. The left lower lobe atelectasis/infiltrate is unchanged. The right lung base has slightly improved aeration. PROCEDURE INTERPRETED AT [facility] DEPARTMENT OF RADIOLOGY Final Report Signed by: Dr. Sarah Messer
--- NOTE | 2016-05-13 12:55 | Event Note ---
The patient is about the same as yesterday. Her vitals are unremarkable and her chest x-ray and exam is about the same. Dr. Lucio will be back tomorrow
[2016-05-13] MEDS: SODIUM PHOSPHATE ENEMA 133 ML BOTTLE RECTAL PRN (18:20)
[2016-05-13] MEDS: ENOXAPARIN 40 MG/0.4 ML SYRINGE SUBCUT SCH (20:01)
[2016-05-13] MEDS: MORPHINE 2 MG/1 ML SYRINGE IV PRN (20:42)
--- NOTE | 2016-05-13 21:34 | Event Note ---
Patient seen tonight, she was having some increased coughing and complaining about abdominal discomfort and constipation. Reviewed her pleural fluid studies , cultures were negative but cyto is still pending. Will cont to follow up on this.
[2016-05-14] MEDS: MINERAL OIL 30 ML UDCUP PO SCH ×2 (00:50→09:27)
[2016-05-14] MEDS: VANCOMYCIN INJ 750 MG in SODIUM CHLORIDE 0.9% 250 ML IV SCH ×2 (05:00→15:20)
[2016-05-14 06:29] LABS: Basophils # 0.1 10*3/uL (0.0-0.2); Basophils % 0.7 % (0.0-0.8); Eosinophils # 0.1 10*3/uL (0.0-0.87); Eosinophils % 1.2 % (0.00-10.9); Hematocrit 32.7 VOL% (35.7-47.0); Hemoglobin 10.1 GM/DL (12.0-16.0); Immature Granulocytes % 0.5 %; Immature Granulocytes Absolute 0.04 #; Lymphocytes # 1.6 10*3/uL (1.4-4.0); Lymphocytes % 17.9 % (21.3-54.2); Mean Corpuscular HGB Conc 30.9 GM/DL (32-36); Mean Corpuscular Hemoglobin 24 PG (27-34); Mean Corpuscular Volume 77.3 FL (87-102); Mean Platelet Volume 10.3 FL (9.6-12.0); Monocytes # 0.8 10*3/uL (0.11-0.8); Monocytes % 8.6 % (1.7-12.7); Neutrophils # 6.3 10*3/uL (1.4-7.4); Neutrophils % 71.1 % (38.7-73.9); Platelet Count 731 10*3/uL (130-400); Red Blood Count 4.23 10*6/uL (3.8-5.5); Red Cell Distribution Width 18.6 % (9.3-17.3); White Blood Count 8.9 10*3/uL (4.5-13.71)
[2016-05-14 06:32] LABS: Calcium 8.4 MG/DL (8.5-10.1); Potassium 4.1 MMOL/L (3.5-5.1)
--- NOTE | 2016-05-14 08:21 | General Surgery Progress Note ---
Assessment and Plan (1) Pleural effusion, left Status: Acute Assessment and plan: Impression: 1. Pleural effusion of the left posse secondary to an atelectatic left lobe 2. Status post lap scopic appendectomy 3. No evidence of abdominal abscess 4. Severe constipation. Plan: 1. Get pulmonary look at her for possible bronchoscopy and thoracentesis 2. Attempt to it her bowels functioning at this time. 05/10/2016 Patient is stable still complains of some discomfort on the left side but no significant shortness of breath. Labs look good and stable at this time. Abdomen is soft still mildly distended and bowel sounds are present. Incisions are clean and dry. Still no good bowel movement even with the Dulcolax tabs. Have consulted pulmonary to look at a possibility of bronchoscopy because of the CT scan results looking like it could be atelectatic changes of the left lower lobe. I think be good be sure that there is no mucous plugs blocking it off. Once they have completed this and we need to be a little more aggressive with get her bowels functioning with some enemas and some strong laxatives. 05/11/2016 Patient is progressing slowly with the temporal about 100. Her abdomen remains fairly soft with hypoactive bowel sounds now have had some bowel movements at this time. Clips are out in the abdomen is softer and we will go ahead and work on getting her bowels more functional. She continues to have some atelectatic changes of the left lower lobe but no bronchoscopy at this time. She's had thoracentesis but I don't think eschar make a big difference. Hope and pulmonary we'll look at doing a bronchoscopy soon to take get that lobe open. 05/14/2016. Patient is improving slowly at this time. It appears that we have her bowels functioning at this time with several bowel movements. Abdomen remains soft incisions are clean and dry. An seen no sign of any infection in the abdomen at this time. Primary problem still remains the long and there still seemed to be a small pleural effusion on the left an atelectatic changes. I still feel that he'll possible bronchoscopy might help clear this up little better if we can clean that lung down be sure that that lobe is open. Current Visit: Yes Subjective Patient reports: Present: feels better, tolerating a regular diet, bowel movement, afebrile Exam - Constitutional Vitals: Period Temp Pulse Resp BP Sys/Agudelo Pulse Ox Last 24 Hr 98.4 F-99.1 F 78-99 18-20 118-141/74-97 95-100 General appearance: no acute distress - Head Head exam: Present: normal inspection - ENT ENT exam: Present: normal exam - Neck Neck exam: Present: normal inspection - Respiratory Respiratory exam: Present: rales - Cardiovascular Cardiovascular exam: Present: RRR - GI/Abdominal GI/Abdominal exam: Present: hypoactive bowel sounds, soft, other (incisions healing well.). Absent: tenderness - Extremities Exam Extremities exam: Present: normal inspection - Neurological Exam Neurological exam: Present: alert, oriented X3, CN II-XII intact - Skin Skin exam: Present: normal color, warm, dry Results - Labs CBC & BMP: 05/14/16 05:20 05/14/16 05:20 Lab Results: I have reviewed the past 24 hour labs Specialty Discharge - Follow Up or Referrals - Discharge Medications No Action Ciprofloxacin Tab [Cipro Tab] 500 mg PO BID #14 tablet HYDROcodone/ACETAMIN 7.5-325 [[place] 7.5-325] 1 tablet PO Q6HR #20 tablet
[2016-05-14] MEDS: POLYETHYLENE GLYCOL POWDER 17 GM PACK PO SCH ×2 (09:27→20:28)
[2016-05-14] MEDS: DOCUSATE SODIUM 100 MG CAPSULE PO SCH ×2 (09:27→20:28)
[2016-05-14] MEDS: SODIUM CHLORIDE 0.9% 1,000 ML IV SCH ×2 (09:28→18:06)
[2016-05-14] MEDS: PIPERACILLIN/TAZOBACTAM 3,375 MG in SODIUM CHLORIDE 0.9% 100 ML IV SCH ×2 (10:18→18:03)
--- NOTE | 2016-05-14 10:33 | Hospitalist Progress Note ---
Assessment and Plan (1) Status post appendectomy Status: Chronic Assessment and plan: She appears to be recovering well. As per Surgery. Current Visit: Yes (2) Leukocytosis Status: Acute Assessment and plan: Resolving. WBC is 8900 today. Current Visit: Yes (3) Pleural effusion, left Status: Acute Assessment and plan: The pleural effusion has increased slightly. Consult Pulmonary. Current Visit: Yes Exam - Constitutional Vitals: Period Temp Pulse Resp BP Sys/Agudelo Pulse Ox Last 24 Hr 98.4 F-99.1 F 78-99 18-20 118-141/74-97 95-100 General appearance: no acute distress - Respiratory Respiratory exam: Present: clear to auscultation bilaterally, decreased breath sounds (left base) - Cardiovascular Cardiovascular exam: Present: regular rate and rhythm - Extremities Exam Extremities exam: Present: normal inspection - Skin Skin exam: Present: normal color Results - Labs CBC & BMP: 05/14/16 05:20 05/14/16 05:20 Specialty Discharge - Follow Up or Referrals - Discharge Medications No Action Ciprofloxacin Tab [Cipro Tab] 500 mg PO BID #14 tablet HYDROcodone/ACETAMIN 7.5-325 [[place] 7.5-325] 1 tablet PO Q6HR #20 tablet
[2016-05-14] MEDS: MORPHINE 2 MG/1 ML SYRINGE IV PRN (18:32)
[2016-05-14] MEDS: ENOXAPARIN 40 MG/0.4 ML SYRINGE SUBCUT SCH (20:28)
[2016-05-15] MEDS: PIPERACILLIN/TAZOBACTAM 3,375 MG in SODIUM CHLORIDE 0.9% 100 ML IV SCH ×3 (02:34→18:31)
[2016-05-15] MEDS: VANCOMYCIN INJ 750 MG in SODIUM CHLORIDE 0.9% 250 ML IV SCH ×2 (06:22→15:14)
[2016-05-15] MEDS: SODIUM CHLORIDE 0.9% 1,000 ML IV SCH ×2 (06:51→11:04)
--- NOTE | 2016-05-15 08:32 | General Surgery Progress Note ---
Assessment and Plan (1) Pleural effusion, left Status: Acute Assessment and plan: Impression: 1. Pleural effusion of the left posse secondary to an atelectatic left lobe 2. Status post lap scopic appendectomy 3. No evidence of abdominal abscess 4. Severe constipation. Plan: 1. Get pulmonary look at her for possible bronchoscopy and thoracentesis 2. Attempt to it her bowels functioning at this time. 05/10/2016 Patient is stable still complains of some discomfort on the left side but no significant shortness of breath. Labs look good and stable at this time. Abdomen is soft still mildly distended and bowel sounds are present. Incisions are clean and dry. Still no good bowel movement even with the Dulcolax tabs. Have consulted pulmonary to look at a possibility of bronchoscopy because of the CT scan results looking like it could be atelectatic changes of the left lower lobe. I think be good be sure that there is no mucous plugs blocking it off. Once they have completed this and we need to be a little more aggressive with get her bowels functioning with some enemas and some strong laxatives. 05/11/2016 Patient is progressing slowly with the temporal about 100. Her abdomen remains fairly soft with hypoactive bowel sounds now have had some bowel movements at this time. Clips are out in the abdomen is softer and we will go ahead and work on getting her bowels more functional. She continues to have some atelectatic changes of the left lower lobe but no bronchoscopy at this time. She's had thoracentesis but I don't think eschar make a big difference. Hope and pulmonary we'll look at doing a bronchoscopy soon to take get that lobe open. 05/14/2016. Patient is improving slowly at this time. It appears that we have her bowels functioning at this time with several bowel movements. Abdomen remains soft incisions are clean and dry. An seen no sign of any infection in the abdomen at this time. Primary problem still remains the long and there still seemed to be a small pleural effusion on the left an atelectatic changes. I still feel that he'll possible bronchoscopy might help clear this up little better if we can clean that lung down be sure that that lobe is open. 05/15/2016 Patient looks better still little complain of some crampy abdominal pain across her epigastrium but has been using some carbonated drinks. She has some loose soft bowel movements now and I have started her on some MiraLAX. I think this will get her bowels under shape but she may still have some crampy discomfort at some point until things resolve completely. Do not no worse than pulmonary-clarke and would hope that pulmonary we consider bronchoscopy at some point to see if we can open up her lung. Current Visit: Yes Subjective Patient reports: Present: feels better, pain is less, tolerating a regular diet , bowel movement, afebrile, other (still with a little crampy abdominal discomfort but has been using some carbonated drinks.) Exam - Constitutional Vitals: Period Temp Pulse Resp BP Sys/Agudelo Pulse Ox Last 24 Hr 98.1 F-98.6 F 76-79 16-20 138-162/84-97 95-100 General appearance: no acute distress - Head Head exam: Present: normal inspection - ENT ENT exam: Present: normal exam - Neck Neck exam: Present: normal inspection - Respiratory Respiratory exam: Present: rales - Cardiovascular Cardiovascular exam: Present: RRR - GI/Abdominal GI/Abdominal exam: Present: hypoactive bowel sounds, tenderness (still with a little crampy discomfort across the epigastrium), soft. Absent: distended - Extremities Exam Extremities exam: Present: normal inspection - Neurological Exam Neurological exam: Present: alert, oriented X3, CN II-XII intact - Skin Skin exam: Present: normal color, warm, dry Results - Labs CBC & BMP: 05/14/16 05:20 05/14/16 05:20 Lab Results: I have reviewed the past 24 hour labs Specialty Discharge - Follow Up or Referrals - Discharge Medications No Action Ciprofloxacin Tab [Cipro Tab] 500 mg PO BID #14 tablet HYDROcodone/ACETAMIN 7.5-325 [[place] 7.5-325] 1 tablet PO Q6HR #20 tablet
[2016-05-15] MEDS: DOCUSATE SODIUM 100 MG CAPSULE PO SCH ×2 (08:40→21:38)
[2016-05-15] MEDS: POLYETHYLENE GLYCOL POWDER 17 GM PACK PO SCH ×2 (08:40→21:38)
--- NOTE | 2016-05-15 09:46 | XRay Report ---
Exam: Chest 2 views Date: May 15, 2016 at 9:38 AM Comparison: Chest 2 views May 13, 2016 Reason: Evaluate pleural effusion Findings: The cardiac silhouette is normal in size. There are opacities within the left mid and lower lung zones. This is concerning for atelectasis and likely pneumonia. No pneumothorax is identified, but there is moderate left pleural fluid. The osseous structures appear stable. Impression: There has been no significant change. Followup is recommended to confirm resolution and exclude an underlying pulmonary nodule within the left lung. PROCEDURE INTERPRETED AT [facility] DEPARTMENT OF RADIOLOGY Final Report Signed by: Dr. Dashawn Suárez
--- NOTE | 2016-05-15 10:16 | Pathology Report from [facility] ---
ACCESSION # : [id number] PATIENT NAME : Yari Fitzpatrick ORDERING DR : ANTONIETA POOL MD CLINICAL HX: Left Pleural Effusion POST-OP DX: Same SPECIMEN INFO: Fluid,Pleural,Left - 1000 ml's dark yellow, cloudy with clots. CLASS: I CLASS COMMENTS: Marked suppurative inflammation and mesothelial cellsCELL BLOCK : Same CLASS LEGEND: CLASS 0 Material inadequate for diagnosis because of (see comment) CLASS I Absence of atypical or abnormal cells CLASS II Atypical Cytology but no evidence of malignancy CLASS III Cytology suggestive of but not conclusive for malignancy CLASS IV Cytology strongly suggestive of malignancy CLASS V Cytology conclusive for malignancy SERVICE DATE: 05/11/2016 REPORT DATE: 05/15/2016 PATHOLOGIST: Koery Mcgarry III, M.D. [facility]
--- NOTE | 2016-05-15 11:22 | Pulmonology Progress Note ---
Pulmonary - PN: Subj Interval history: This is a 41-year-old black female who works at [employer] in [facility]. I saw her in pulmonary consultation 05/10/2016. She had been here 04/28/2016 with a gangrenous appendix was surgically removed by Dr. Lucio. There was some spillage of contents from the grossly swollen and gangrenous appendix. This patient presented this time with an ileus and a painful left pleural effusion. CT scan is abnormal showing a good bit of mesenteric edema. The patient had a thoracentesis on 05/10/2016. This was an exudate based on the proteins. Glucoses were the same as her blood glucoses and the pH was 8. This does not appear to be infected and probably originates from below the diaphragm. The patient's lung is reexpanded with removal of most of the pleural effusion. She does have some elevation of her left hemidiaphragm and this appears to be secondary to a large dilated stomach.05/11/2016. At the time of my consultation on 05/10/2016 I felt these were her main problems . 1. Acute left pleural effusion. Etiology undetermined. Patient could have had pneumonia and this could be a parapneumonic effusion but she denies any symptoms of pneumonia. This effusion has developed since CT of the abdomen done 04/28/2016. I think we have to watch for left upper quadrant intra- abdominal abscess. Keep in mind entity such as pancreatitis. Thoracentesis done 05/10/2016 showed an exudate without any evidence of infection. Cytologies , Gram stain, bacterial cultures are pending. 2. Abnormal heart sounds. Etiology undetermined. Echocardiogram done 2015 showed mild left ventricular hypertrophy ejection fraction of 60% and mild mitral regurgitation. 3. Large uterus thought to be secondary to fibroids. May eventually need additional workup 4. Tobacco abuse. Stop smoking 04/28/2016. 5. Surgical removal of gangrenous appendix 04/28/2016. 05/15/2016. This patient continues have a left pleural effusion. This was an exudate. There was no evidence of infection. I am a little surprised that this is not resolved. I agree with surgery we can evaluate this with fiberoptic bronchoscopy which I will schedule for tomorrow morning. In the meantime I will get a CT scan of the lower chest and upper abdomen. White count is dropped 8971 segs 18 lymphs and 9 monocytes. H&H 10.1/32.7. Electrolytes are normal. Creatinine is 0.70. Physical exam. Vital signs. See below General. No apparent distress talkative. Still some sharp pleuritic-like pains over the left lower chest but these are markedly improved. Psychiatric. Oriented 3 Neurologic. Cranial nerves are intact. Long track motor functions intact Eyes, face, salivary glands, lips and tongue are normal. Neck. Symmetrical. No meningismus Lymphatics. No submandibular cervical supraclavicular adenopathy. Chest. Clear Heart. Grade 1.5 over 6 systolic ejection murmur at the left sternal border. I do not hear radiation. Patient appears to have a midsystolic click Abdomen. Postsurgical. Bowel sounds were heard Extremities. Nothing to suggest deep venous thrombophlebitis. 1.. Note the Doppler venograms of the lower extremities showed no evidence of deep venous thrombophlebitis. 2. Note CT of the chest showed no evidence of pulmonary emboli. The remainder of the physical exam is noncontributory. Plan. 1. Thoracentesis fluid is an exudate. Please check cytology, Gram stain, bacterial cultures. I do not think this is infected. Pleural fluid amylase and lipase were negative 2. I suspect the pleural effusion will turnaround planner to originate from something below the left diaphragm. Continue antibiotics. Watch for abscess. Admit white count was 18,500 with 81 segs. This is dropped to 14,000 with 73 segs, 13 lymphs, 12.5 monocytes. 3. Patient appears to have an ileus. This seems to be improving. Watch closely. She is a has a dilated stomach or dilated colon at the splenic flexure. 4. There is still a small amount of pleural effusion. There does not appear to be an infiltrate. What was seen on CT appears to be atelectasis secondary to pleural effusion. Benign nodules were noted. At the present time patient does not need a fiberoptic bronchoscopy. 5. [address] the patient will need follow-up chest x-ray. 6. This patient has an abnormal uterus. I am not sure whether not this is being followed. #7. 05/15/2016. We will schedule for fiberoptic bronchoscopy tomorrow morning. CT of lower chest and abdomen today. No evidence of infection pleural effusion. Exam (Progress Note) - Constitutional Vitals: Period Temp Pulse Resp BP Sys/Agudelo Pulse Ox Last 24 Hr 98.1 F-98.6 F 76-79 16-20 138-162/84-97 95-100 Results - Labs CBC & BMP: 05/14/16 05:20 05/14/16 05:20 Specialty Discharge - Follow Up or Referrals - Discharge Medications No Action Ciprofloxacin Tab [Cipro Tab] 500 mg PO BID #14 tablet HYDROcodone/ACETAMIN 7.5-325 [[place] 7.5-325] 1 tablet PO Q6HR #20 tablet
[2016-05-15] MEDS ORDERED: LIDOCAINE 4% TOP SOLN 50 ML BOTTLE RESP TX ONE (11:24)
[2016-05-15] MEDS ORDERED: LIDOCAINE 2% VISCOUS 100 ML BOTTLE SWISH/SPIT ONE (11:24)
[2016-05-15] MEDS ORDERED: LIDOCAINE 1% 20 ML VIAL MISC INJ ONE (11:24)
--- NOTE | 2016-05-15 15:12 | CT Report ---
CT chest abdomen pelvis wo/w Technique: Axial imaging was performed from the lung apices through the lung bases with continuation through the abdomen and pelvis prior to and following administration of 100 cc of Omnipaque 350.. No immediate complication from administration of contrast. Coronal and sagittal reformatted images were additionally created and submitted for review. Total DLP: 583.7 mGy*cm Clinical history: Pleural effusion, enlarged uterus, mesenteric edema Comparison: Prior CT abdomen pelvis 05/09/16 Findings: CHEST: Mediastinum/vessels: Heart and great vessels appear unremarkable. There is no evidence of pericardial effusion. The pulmonary vessels appear grossly patent. Thoracic aorta is nonaneurysmal with no significant atherosclerotic disease visualized. Thyroid/lymph nodes: There is no adenopathy in the chest. Thyroid gland appears within normal limits. Lungs: There is been a slight decrease in the size of the left-sided pleural effusion which is now moderate with partial loculation inferiorly. There are patchy areas of atelectasis within the left lower lobe and, to a lesser degree, the right lower lobe. The central airways appear patent. There is no pneumothorax. ABDOMEN: Liver/Gallbladder: No abnormal enhancing hepatic lesions. Gallbladder is not distended. There is no biliary ductal by location. There is a single hypodense nonenhancing subcentimeter lesion in the right lobe which is stable from prior and indeterminate but statistically likely represents a cyst or hemangioma. Spleen: No acute findings. Pancreas: No acute findings. Adrenals: Within normal limits in appearance. Kidneys: The kidneys enhance symmetrically. Symmetric excretion is noted on delayed images. Bowel/mesentery: Diffuse mesenteric edema is again noted throughout the abdomen. There is mild distention of small bowel with no definite focal obstruction visualized. Oral contrast is noted throughout small bowel with mucosal edema most prominent within the distal small bowel near the ileum. The cecum demonstrates oral contrast but is not dilated. The distal colon as also nondilated with minimal retained oral contrast/fecal material noted. There is no free fluid/free air within the abdomen Retroperitoneum: No evidence of aortic aneurysm or significant retroperitoneal adenopathy. PELVIS: Bladder: Bladder appears unremarkable for degree of distention. Pelvic organs: Marked enlargement and heterogeneity throughout the uterus is again noted. The overall size of the uterus is not significantly changed when compared to the 05/09 study. There is a 7 x 4.4 cm a minimally enhancing lesion with central hypodensity on delayed images (axial images 174, 328) which is concerning for underlying mass lesion. There is also haziness within the within the pelvic fat suggesting a degree of surrounding edema although no focal free fluid is visualized within the dependent portion of the uterus. Probable small right ovarian cyst measuring 1.7 cm. Free fluid/lymph nodes: There is no free fluid in the dependent pelvis. No significantly enlarged lymph nodes are identified in the pelvis. Vessels: Major pelvic vasculature is essentially unremarkable in appearance and widely patent. BONES: No acute or suspicious osseous abnormalities are identified. Impression: 1. Moderate partially loculated left pleural effusion which is slightly decreased in size from prior. Patchy basilar atelectasis also noted. 2. Diffuse mesenteric edema with prominent mucosal edema throughout the visualized small bowel suggesting a diffuse generalized mesenteritis. No definite free fluid/air within the abdomen. No focal fluid collections are visualized to suggest abscess formation. Continued close clinical and imaging followup is recommended. 3. Enlarged uterus is similar prior. There is a 7 x 4.4 cm minimally enhancing lesion within the uterine cavity. Leiomyoma versus sarcoma would be the primary differential considerations. Correlation with endometrial biopsy could be considered if clinically indicated. PROCEDURE INTERPRETED AT [facility] DEPARTMENT OF RADIOLOGY Final Report Signed by: Manolo Villafana
[2016-05-15] MEDS: ENOXAPARIN 40 MG/0.4 ML SYRINGE SUBCUT SCH (20:37)
[2016-05-16] MEDS: PIPERACILLIN/TAZOBACTAM 3,375 MG in SODIUM CHLORIDE 0.9% 100 ML IV SCH ×3 (04:11→17:45)
[2016-05-16 05:24] LABS: Basophils # 0.1 10*3/uL (0.0-0.2); Basophils % 0.5 % (0.0-0.8); Eosinophils # 0.2 10*3/uL (0.0-0.87); Eosinophils % 1.5 % (0.00-10.9); Hematocrit 29.7 VOL% (35.7-47.0); Hemoglobin 9.3 GM/DL (12.0-16.0); Immature Granulocytes % 0.3 %; Immature Granulocytes Absolute 0.03 #; Lymphocytes # 1.6 10*3/uL (1.4-4.0); Lymphocytes % 15.8 % (21.3-54.2); Mean Corpuscular HGB Conc 31.3 GM/DL (32-36); Mean Corpuscular Hemoglobin 24 PG (27-34); Mean Corpuscular Volume 75.2 FL (87-102); Mean Platelet Volume 8.5 FL (9.6-12.0); Monocytes # 0.7 10*3/uL (0.11-0.8); Monocytes % 7.1 % (1.7-12.7); Neutrophils # 7.7 10*3/uL (1.4-7.4); Neutrophils % 74.8 % (38.7-73.9); Platelet Count 960 10*3/uL (130-400); Red Blood Count 3.95 10*6/uL (3.8-5.5); Red Cell Distribution Width 18.1 % (9.3-17.3); White Blood Count 10.2 10*3/uL (4.5-13.71)
[2016-05-16 05:33] LABS: INR 1.1; PT Patient Result 11.5 SECS; Partial Thromboplastin Time 30.9 SECS (0-40)
[2016-05-16] MEDS ORDERED: MEPERIDINE 50 MG/1 ML VIAL IM ONE (06:00)
[2016-05-16] MEDS ORDERED: diphenhydrAMINE 50 MG/1 ML VIAL IM ONE (06:00)
[2016-05-16] MEDS ORDERED: BENZONATATE 100 MG CAPSULE PO ONE (07:30)
[2016-05-16] MEDS: VANCOMYCIN INJ 750 MG in SODIUM CHLORIDE 0.9% 250 ML IV SCH ×3 (07:37→22:22)
--- NOTE | 2016-05-16 09:18 | Hospitalist Progress Note ---
Assessment and Plan (1) Status post appendectomy Status: Chronic Assessment and plan: She continues to have difficulty eating. Will change diet to clear liquids. Current Visit: Yes (2) Leukocytosis Status: Acute Assessment and plan: Resolving. Current Visit: Yes (3) Pleural effusion, left Status: Acute Assessment and plan: She is status post bronchoscopy. Results are pending. Current Visit: Yes Hospitalist: Subjective Interval history: She continues to have difficulty eating. Exam - Constitutional Vitals: Period Temp Pulse Resp BP Sys/Agudelo Pulse Ox Last 24 Hr 97.4 F-98.8 F 75-90 12-24 121-160/71-105 94-100 General appearance: normal weight - Head Head exam: Present: normal inspection - Neck Neck exam: Present: normal inspection - Respiratory Respiratory exam: Present: clear to auscultation bilaterally - Cardiovascular Cardiovascular exam: Present: regular rate and rhythm - GI/Abdominal GI/Abdominal exam: Present: normal bowel sounds, soft, other (nontender) - Extremities Exam Extremities exam: Present: normal inspection - Skin Skin exam: Present: normal color Results - Labs CBC & BMP: 05/16/16 05:08 05/14/16 05:20 Specialty Discharge - Follow Up or Referrals - Discharge Medications No Action Ciprofloxacin Tab [Cipro Tab] 500 mg PO BID #14 tablet HYDROcodone/ACETAMIN 7.5-325 [[place] 7.5-325] 1 tablet PO Q6HR #20 tablet
--- NOTE | 2016-05-16 09:20 | Event Note ---
In hospital diagnostic and therapeutic fiberoptic bronchoscopy. Specimens were sent for cytology, Gram stain, bacterial cultures, fungal stains and culture, AFB stains and culture. This is a 41-year-old black female who is admitted to the hospital on 2015 with acute gangrenous appendicitis. She did well with surgery and went home. She then came back with an ileus and a left pleural effusion. Thoracentesis has shown an exudate without evidence of infection. The effusion has not resolved. Patient continues to have pleuritic pain and an abnormal chest x-ray. Loculation of pleural fluid was seen on CT scan. For these reasons the patient was evaluated with fiberoptic bronchoscopy. The vocal cords were normal. Trachea was normal. Gita was normal. In the right mainstem bronchus there were secretions. Right upper lung and right middle lung appeared to be normal. There was erosive friable bronchitis with retention of secretions in the right lower lung. This area was lavaged until clear. See photographs under reports. Left mainstem bronchus contained secretions. The left upper lung was normal. The left lower lung was full of thick secretions and it was erosive friable bronchitis. Friability showed up and this was touched by the bronchoscope. This area was lavaged until clear. No food particles were found. On the reports, see photograph #2 and photograph #3. Both of these lower lung injuries appeared to be secondary to previous aspiration which most likely occurred around the time of the patient's acute appendicitis. The patient tolerated procedure well there were no complications. Impression. 1. None resolved loculated left pleural effusion. This is probably a parapneumonic effusion. There is no sub-diaphragmatic abscess seen on CT scan of the abdomen. 2. Bibasal erosive friable bronchitis most likely secondary to an aspiration injury that occurred during the patient's episode of acute appendicitis. Plan. 1. Check bronchoscopy specimens 2. I will discuss the case with Dr. Lucio. The fluid is loculated but could still resolve. The question is whether to wait this out or intervention.
[2016-05-16] MEDS: DOCUSATE SODIUM 100 MG CAPSULE PO SCH ×2 (10:56→21:27)
[2016-05-16] MEDS: POLYETHYLENE GLYCOL POWDER 17 GM PACK PO SCH ×2 (10:56→21:31)
--- NOTE | 2016-05-16 12:06 | Pulmonology Progress Note ---
Exam (Progress Note) - Constitutional Vitals: Period Temp Pulse Resp BP Sys/Agudelo Pulse Ox Last 24 Hr 98.1 F-98.8 F 76-90 12-24 121-160/71-105 94-100 Results - Labs CBC & BMP: 05/16/16 05:08 05/14/16 05:20 Specialty Discharge - Follow Up or Referrals - Discharge Medications No Action Ciprofloxacin Tab [Cipro Tab] 500 mg PO BID #14 tablet HYDROcodone/ACETAMIN 7.5-325 [[place] 7.5-325] 1 tablet PO Q6HR #20 tablet
--- NOTE | 2016-05-16 19:02 | Pulmonology Progress Note ---
Pulmonary - PN: Subj Interval history: This is a 41-year-old black female who works at [employer] in [facility]. I saw her in pulmonary consultation 05/10/2016. She had been here 04/28/2016 with a gangrenous appendix was surgically removed by Dr. Lucio. There was some spillage of contents from the grossly swollen and gangrenous appendix. This patient presented this time with an ileus and a painful left pleural effusion. CT scan is abnormal showing a good bit of mesenteric edema. The patient had a thoracentesis on 05/10/2016. This was an exudate based on the proteins. Glucoses were the same as her blood glucoses and the pH was 8. This does not appear to be infected and probably originates from below the diaphragm. The patient's lung is reexpanded with removal of most of the pleural effusion. She does have some elevation of her left hemidiaphragm and this appears to be secondary to a large dilated stomach.05/11/2016. At the time of my consultation on 05/10/2016 I felt these were her main problems . 1. Acute left pleural effusion. Etiology undetermined. Patient could have had pneumonia and this could be a parapneumonic effusion but she denies any symptoms of pneumonia. This effusion has developed since CT of the abdomen done 04/28/2016. I think we have to watch for left upper quadrant intra- abdominal abscess. Keep in mind entity such as pancreatitis. Thoracentesis done 05/10/2016 showed an exudate without any evidence of infection. Cytologies , Gram stain, bacterial cultures are pending. 2. Abnormal heart sounds. Etiology undetermined. Echocardiogram done 2015 showed mild left ventricular hypertrophy ejection fraction of 60% and mild mitral regurgitation. 3. Large uterus thought to be secondary to fibroids. May eventually need additional workup 4. Tobacco abuse. Stop smoking 04/28/2016. 5. Surgical removal of gangrenous appendix 04/28/2016. 05/15/2016. This patient continues have a left pleural effusion. This was an exudate. There was no evidence of infection. I am a little surprised that this is not resolved. I agree with surgery we can evaluate this with fiberoptic bronchoscopy which I will schedule for tomorrow morning. In the meantime I will get a CT scan of the lower chest and upper abdomen. White count is dropped 8971 segs 18 lymphs and 9 monocytes. H&H 10.1/32.7. Electrolytes are normal. Creatinine is 0.70. 05/15/2016. Patient's chest x-ray shows residual left pleural effusion. Will CT scan this appears to be loculated. There was no sub-diaphragmatic abscess seen. Patient does have a very large uterus. See report for additional details. Earlier today the patient was evaluated with fiberoptic bronchoscopy. She had evidence of bilateral aspiration injury that probably occurred before she had an appendectomy on 04/28/2016. See fiberoptic bronchoscopy dictation. See photographs on the reports. Patient still has some left pleuritic chest pain. She has not had a cough and she has not produced any significant amount of sputum. Post bronchoscopy by discussed the case with Dr. Lucio. At the present time will go to treat the pleural fluid conservatively. We will have to watch carefully make sure we do not get pleural scarring with entrapment of the lung. Physical exam. Vital signs. See below General. No apparent distress talkative. Still some sharp pleuritic-like pains over the left lower chest but these are markedly improved. Psychiatric. Oriented 3 Neurologic. Cranial nerves are intact. Long track motor functions intact Eyes, face, salivary glands, lips and tongue are normal. Neck. Symmetrical. No meningismus Lymphatics. No submandibular cervical supraclavicular adenopathy. Chest. Clear Heart. Grade 1.5 over 6 systolic ejection murmur at the left sternal border. I do not hear radiation. Patient appears to have a midsystolic click Abdomen. Postsurgical. Bowel sounds were heard Extremities. Nothing to suggest deep venous thrombophlebitis. 1.. Note the Doppler venograms of the lower extremities showed no evidence of deep venous thrombophlebitis. 2. Note CT of the chest showed no evidence of pulmonary emboli. The remainder of the physical exam is noncontributory. Plan. 1. Thoracentesis fluid is an exudate. Please check cytology, Gram stain, bacterial cultures. I do not think this is infected. Pleural fluid amylase and lipase were negative 2. I suspect the pleural effusion will buffing turner and counter to originate from something below the left diaphragm. Continue antibiotics. Watch for abscess. Admit white count was 18,500 with 81 segs. This is dropped to 14,000 with 73 segs, 13 lymphs, 12.5 monocytes. 3. Patient appears to have an ileus. This seems to be improving. Watch closely. She is a has a dilated stomach or dilated colon at the splenic flexure. 4. There is still a small amount of pleural effusion. There does not appear to be an infiltrate. What was seen on CT appears to be atelectasis secondary to pleural effusion. Benign nodules were noted. At the present time patient does not need a fiberoptic bronchoscopy. 5. Down [address] the patient will need follow-up chest x-ray. 6. This patient has an abnormal uterus. I am not sure whether not this is being followed. #7. 05/15/2016. We will schedule for fiberoptic bronchoscopy tomorrow morning. CT of lower chest and abdomen today. No evidence of infection pleural effusion. 8. 05/16/2016. See my note dated 05/16/2016 above. Exam (Progress Note) - Constitutional Vitals: Period Temp Pulse Resp BP Sys/Agudelo Pulse Ox Last 24 Hr 98.1 F-99.0 F 76-93 12-24 121-160/71-105 94-100 Results - Labs CBC & BMP: 05/16/16 05:08 05/14/16 05:20 Specialty Discharge - Follow Up or Referrals - Discharge Medications No Action Ciprofloxacin Tab [Cipro Tab] 500 mg PO BID #14 tablet HYDROcodone/ACETAMIN 7.5-325 [[place] 7.5-325] 1 tablet PO Q6HR #20 tablet
[2016-05-16] MEDS: ENOXAPARIN 40 MG/0.4 ML SYRINGE SUBCUT SCH (21:25)
[2016-05-16] MEDS: SODIUM CHLORIDE 0.9% 1,000 ML IV SCH ×2 (22:20→22:21)
[2016-05-17] MEDS: PIPERACILLIN/TAZOBACTAM 3,375 MG in SODIUM CHLORIDE 0.9% 100 ML IV SCH ×3 (02:22→18:06)
--- NOTE | 2016-05-17 07:58 | General Surgery Progress Note ---
Assessment and Plan - Time spent with patient Time spent with patient: Less than 30 minutes (1) Status post appendectomy Status: Chronic Assessment and plan: 05/17/16 Doing well from a surgical standpoint. We favor continued conservative management of the left pleural effusion and have discussed this with the patient , but will defer to Dr Briggs's judgment. She could go home at any time, but stay on Colace BID and Miralax, 1 Tbsp in juice BID. We will need to check her in our office in 3-4 weeks unless she has problems otherwise. Current Visit: Yes Subjective Patient reports: Present: feels better, pain is less, bowel movement. Absent: shortness of breath Exam - Constitutional Vitals: Period Temp Pulse Resp BP Sys/Agudelo Pulse Ox Last 24 Hr 97.0 F-99.0 F 76-93 12-24 130-162/83-105 94-100 General appearance: no acute distress - GI/Abdominal GI/Abdominal exam: Present: normal bowel sounds, soft. Absent: guarding, tenderness Results - Labs CBC & BMP: 05/16/16 05:08 05/14/16 05:20 Lab Results: I have reviewed the past 24 hour labs Specialty Discharge - Follow Up or Referrals Follow up with: Michael Lucio MD [Physician] - 2 Weeks (See Dr Lucio or Clare in 2-3 weeks) - Discharge Medications No Action Ciprofloxacin Tab [Cipro Tab] 500 mg PO BID #14 tablet HYDROcodone/ACETAMIN 7.5-325 [[place] 7.5-325] 1 tablet PO Q6HR #20 tablet
[2016-05-17] MEDS: VANCOMYCIN INJ 750 MG in SODIUM CHLORIDE 0.9% 250 ML IV SCH ×3 (07:59→23:18)
[2016-05-17] MEDS: SODIUM CHLORIDE 0.9% 1,000 ML IV SCH ×3 (08:00→18:45)
--- NOTE | 2016-05-17 08:24 | XRay Report ---
Exam: XR chest 2V Indication: Post bronchoscopy Comparison study: 05/15/16 Findings: Cardiac silhouette and mediastinal contours appear central stable from prior. The left lower lobe opacities likely representing atelectasis/infiltrate and pleural fluid are essentially unchanged from prior. There is no pneumothorax. Osseous structures are stable. Impression: No pneumothorax following arthroscopy. Left lung base opacities are essentially unchanged from prior. PROCEDURE INTERPRETED AT [facility] DEPARTMENT OF RADIOLOGY Final Report Signed by: Manolo Villafana
[2016-05-17] MEDS: POLYETHYLENE GLYCOL POWDER 17 GM PACK PO SCH ×2 (10:18→20:16)
[2016-05-17] MEDS: DOCUSATE SODIUM 100 MG CAPSULE PO SCH ×2 (10:18→20:16)
--- NOTE | 2016-05-17 10:24 | Hospitalist Progress Note ---
Assessment and Plan (1) Status post appendectomy Status: Chronic Assessment and plan: She is tolerating clear liquids without problems. Current Visit: Yes (2) Leukocytosis Status: Acute Assessment and plan: Resolving. Current Visit: Yes (3) Pleural effusion, left Status: Acute Assessment and plan: She is status post bronchoscopy. I appreciate the Pulmonary note. She has a residual small left pleural effusion which is to be treated conservatively. Current Visit: Yes Exam - Constitutional Vitals: Period Temp Pulse Resp BP Sys/Agudelo Pulse Ox Last 24 Hr 97.0 F-99.0 F 79-93 18-20 142-162/83-93 96-98 General appearance: no acute distress - Head Head exam: Present: normal inspection - Neck Neck exam: Present: normal inspection - Respiratory Respiratory exam: Present: clear to auscultation bilaterally - Cardiovascular Cardiovascular exam: Present: regular rate and rhythm - GI/Abdominal GI/Abdominal exam: Present: normal bowel sounds, soft, other (nontender) - Extremities Exam Extremities exam: Present: normal inspection - Skin Skin exam: Present: normal color Results - Labs CBC & BMP: 05/16/16 05:08 05/14/16 05:20 Specialty Discharge - Follow Up or Referrals Follow up with: Michael Lucio MD [Physician] - 2 Weeks (See Dr Lucio or Clare in 2-3 weeks) - Discharge Medications No Action Ciprofloxacin Tab [Cipro Tab] 500 mg PO BID #14 tablet HYDROcodone/ACETAMIN 7.5-325 [[place] 7.5-325] 1 tablet PO Q6HR #20 tablet
--- NOTE | 2016-05-17 11:16 | Pathology Report from [facility] ---
ACCESSION # : [id number] PATIENT NAME : Yari Fitzpatrick ORDERING DR : MARILYNN MARTINEZ MD CLINICAL HX: Effusion, smoker POST-OP DX: Same SPECIMEN INFO: Washing- Bronchial, bilateral - 34 mls cloudy rust CLASS: I CLASS COMMENTS: Benign respiratory epithelial cells and pulmonary macrophages.CELL BLOCK: Same CLASS LEGEND: CLASS 0 Material inadequate for diagnosis because of (see comment) CLASS I Absence of atypical or abnormal cells CLASS II Atypical Cytology but no evidence of malignancy CLASS III Cytology suggestive of but not conclusive for malignancy CLASS IV Cytology strongly suggestive of malignancy CLASS V Cytology conclusive for malignancy SERVICE DATE: 05/16/2016 REPORT DATE: 05/17/2016 PATHOLOGIST: Korey Mcgarry III, M.D. MTDD
--- NOTE | 2016-05-17 11:42 | Pulmonology Progress Note ---
Pulmonary - PN: Subj Interval history: Edmund Pathak, ANP-BC, GNP-BC, acting as scribe for Dr. Tony Briggs This is a 41-year-old black female who works at [employer] in [facility]. We saw her in pulmonary consultation 05/10/2016. She had been here 04/28/2016 with a gangrenous appendix which was surgically removed by Dr. Lucio. There was some spillage of contents from the grossly swollen and gangrenous appendix. This patient presented this time with an ileus and a painful left pleural effusion. CT scan was abnormal showing a good bit of mesenteric edema. The patient had a thoracentesis on 05/10/2016. This was an exudate based on the proteins. Glucoses were the same as her blood glucoses and the pH was 8. This does not appear to be infected and probably originates from below the diaphragm. The patient's lung is reexpanded with removal of most of the pleural effusion. She does have some elevation of her left hemidiaphragm and this appears to be secondary to a large dilated stomach. 05/11/2016. At the time of my consultation on 05/10/2016 I felt these were her main problems : 1. Acute left pleural effusion. Etiology undetermined. Patient could have had pneumonia and this could be a parapneumonic effusion but she denies any symptoms of pneumonia. This effusion has developed since CT of the abdomen done 04/28/2016. I think we have to watch for left upper quadrant intra- abdominal abscess. Keep in mind entity such as pancreatitis. Thoracentesis done 05/10/2016 showed an exudate without any evidence of infection. Cytologies , Gram stain, bacterial cultures are pending. 2. Abnormal heart sounds. Etiology undetermined. Echocardiogram done 2015 showed mild left ventricular hypertrophy ejection fraction of 60% and mild mitral regurgitation. 3. Large uterus thought to be secondary to fibroids. May eventually need additional workup 4. Tobacco abuse. Stop smoking 04/28/2016. 5. Surgical removal of gangrenous appendix 04/28/2016. 05/15/2016. This patient continues have a left pleural effusion. This was an exudate. There was no evidence of infection. I am a little surprised that this is not resolved. I agree with surgery we can evaluate this with fiberoptic bronchoscopy which I will schedule for tomorrow morning. In the meantime I will get a CT scan of the lower chest and upper abdomen. White count is dropped 8971 segs 18 lymphs and 9 monocytes. H&H 10.1/32.7. Electrolytes are normal. Creatinine is 0.70. 05/16/2016. Patient's chest x-ray shows residual left pleural effusion. Will CT scan this appears to be loculated. There was no sub-diaphragmatic abscess seen. Patient does have a very large uterus. See report for additional details. Earlier today the patient was evaluated with fiberoptic bronchoscopy. She had evidence of bilateral aspiration injury that probably occurred before she had an appendectomy on 04/28/2016. See fiberoptic bronchoscopy dictation. See photographs on the reports. Patient still has some left pleuritic chest pain. She has not had a cough and she has not produced any significant amount of sputum. Post bronchoscopy by discussed the case with Dr. Lucio. At the present time will go to treat the pleural fluid conservatively. We will have to watch carefully make sure we do not get pleural scarring with entrapment of the lung. 05/17/2016. The patient is doing well this morning. FOB washings showed no organisms. Cytology from the washings was class I. No AFB or fungus was seen on smears. Because of her recent infection, we would recommend PenVK 500mg PO QID x 5 days at discharge. She states she thinks she will be discharged home tomorrow. CXR today is improved. Medications have been reviewed. We made no changes today. Labs have been reviewed. No new labs were drawn today. Exam (Progress Note) - Constitutional Vitals: Period Temp Pulse Resp BP Sys/Agudelo Pulse Ox Last 24 Hr 97.0 F-99.0 F 79-93 18-20 142-162/83-93 96-98 Exam: Chest is clear Heart no gallop Abd is post-surgical as per Dr. Lucio Ext with nothing to suggest acute DVT Psych oriented x 3 Neuro long tract motor function is intact Plan: Continue present treatment while inpatient. At discharge, would recommend PenVK 500mg PO QID x 5 days. She will be scheduled for a [place] app[place] with Eula May [place] [facility] [place] at 1:00 with CXR. Results - Labs CBC & BMP: 05/16/16 05:08 05/14/16 05:20 Specialty Discharge - Follow Up or Referrals Follow up with: Michael Lucio MD [Physician] - 2 Weeks (See Dr Lucio or Clare in 2-3 weeks) Eula May CFNP [Advanced Practice Nurse] - (Scheduled for 06/07/16 at 1:00 with CXR...please make patient aware) - Discharge Medications No Action Ciprofloxacin Tab [Cipro Tab] 500 mg PO BID #14 tablet HYDROcodone/ACETAMIN 7.5-325 [[place] 7.5-325] 1 tablet PO Q6HR #20 tablet
[2016-05-17] MEDS: ENOXAPARIN 40 MG/0.4 ML SYRINGE SUBCUT SCH (20:16)
[2016-05-18] MEDS: PIPERACILLIN/TAZOBACTAM 3,375 MG in SODIUM CHLORIDE 0.9% 100 ML IV SCH ×2 (01:55→10:28)
[2016-05-18] MEDS: VANCOMYCIN INJ 750 MG in SODIUM CHLORIDE 0.9% 250 ML IV SCH (07:45)
--- NOTE | 2016-05-18 10:05 | General Surgery Progress Note ---
Assessment and Plan - Time spent with patient Time spent with patient: Less than 30 minutes (1) Pleural effusion, left Status: Acute Assessment and plan: Impression: 1. Pleural effusion of the left posse secondary to an atelectatic left lobe 2. Status post lap scopic appendectomy 3. No evidence of abdominal abscess 4. Severe constipation. Plan: 1. Get pulmonary look at her for possible bronchoscopy and thoracentesis 2. Attempt to it her bowels functioning at this time. 05/10/2016 Patient is stable still complains of some discomfort on the left side but no significant shortness of breath. Labs look good and stable at this time. Abdomen is soft still mildly distended and bowel sounds are present. Incisions are clean and dry. Still no good bowel movement even with the Dulcolax tabs. Have consulted pulmonary to look at a possibility of bronchoscopy because of the CT scan results looking like it could be atelectatic changes of the left lower lobe. I think be good be sure that there is no mucous plugs blocking it off. Once they have completed this and we need to be a little more aggressive with get her bowels functioning with some enemas and some strong laxatives. 05/11/2016 Patient is progressing slowly with the temporal about 100. Her abdomen remains fairly soft with hypoactive bowel sounds now have had some bowel movements at this time. Clips are out in the abdomen is softer and we will go ahead and work on getting her bowels more functional. She continues to have some atelectatic changes of the left lower lobe but no bronchoscopy at this time. She's had thoracentesis but I don't think eschar make a big difference. Hope and pulmonary we'll look at doing a bronchoscopy soon to take get that lobe open. 05/14/2016. Patient is improving slowly at this time. It appears that we have her bowels functioning at this time with several bowel movements. Abdomen remains soft incisions are clean and dry. An seen no sign of any infection in the abdomen at this time. Primary problem still remains the long and there still seemed to be a small pleural effusion on the left an atelectatic changes. I still feel that he'll possible bronchoscopy might help clear this up little better if we can clean that lung down be sure that that lobe is open. 05/15/2016 Patient looks better still little complain of some crampy abdominal pain across her epigastrium but has been using some carbonated drinks. She has some loose soft bowel movements now and I have started her on some MiraLAX. I think this will get her bowels under shape but she may still have some crampy discomfort at some point until things resolve completely. Do not no worse than pulmonary-clarke and would hope that pulmonary we consider bronchoscopy at some point to see if we can open up her lung. 05/18/2016 Patient continues to be afebrile tolerating diet well and having regular bowel movements. The abdomen is nontender and everything in the abdomen seems to be resolved at this time. No evidence of any abscess formation. We have her bowels functioning regularly now and she'll need to go home on Colace twice a day and MiraLAX twice a day. We spent a good bit of time discussing with her about her diet and which can can eat at this point. Pulmonary-clarke she seems to be stable and Dr. Vitale is managing that at this time. Plan is to discharge her follow-up in 3 weeks. Appears to be stable and other than the whether I don't see any reason she can't go home at any time. Current Visit: Yes Subjective Patient reports: Present: no new complaints, tolerating a regular diet, bowel movement, afebrile Exam - Constitutional Vitals: Period Temp Pulse Resp BP Sys/Agudelo Pulse Ox Last 24 Hr 97.2 F-99.5 F 72-81 18-20 137-153/69-93 96-98 General appearance: no acute distress - Head Head exam: Present: normal inspection - ENT ENT exam: Present: normal exam - Neck Neck exam: Present: normal inspection - Respiratory Respiratory exam: Present: clear to auscultation bilaterally, rales - Cardiovascular Cardiovascular exam: Present: RRR - GI/Abdominal GI/Abdominal exam: Present: normal bowel sounds, soft. Absent: tenderness - Extremities Exam Extremities exam: Present: normal inspection - Neurological Exam Neurological exam: Present: alert, oriented X3, CN II-XII intact - Skin Skin exam: Present: normal color, warm, dry Results - Labs CBC & BMP: 05/16/16 05:08 05/14/16 05:20 Lab Results: I have reviewed the past 24 hour labs Specialty Discharge - Follow Up or Referrals Follow up with: Michael Lucio MD [Physician] - 2 Weeks (See Dr Lucio or Clare in 2-3 weeks) Eula May, CFNP [Advanced Practice Nurse] - (Scheduled for 06/07/16 at 1:00 with CXR...please make patient aware) - Discharge Medications No Action Ciprofloxacin Tab [Cipro Tab] 500 mg PO BID #14 tablet HYDROcodone/ACETAMIN 7.5-325 [[place] 7.5-325] 1 tablet PO Q6HR #20 tablet
[2016-05-18] MEDS: SODIUM CHLORIDE 0.9% 1,000 ML IV SCH (10:29)
--- NOTE | 2016-05-18 12:28 | Pulmonology Progress Note ---
Pulmonary - PN: Subj Interval history: Edmund Pathak, ANP-BC, GNP-BC, acting as scribe for Dr. Tony Briggs This is a 41-year-old black female who works at [employer] in [facility]. We saw her in pulmonary consultation 05/10/2016. She had been here 04/28/2016 with a gangrenous appendix which was surgically removed by Dr. Lucio. There was some spillage of contents from the grossly swollen and gangrenous appendix. This patient presented this time with an ileus and a painful left pleural effusion. CT scan was abnormal showing a good bit of mesenteric edema. The patient had a thoracentesis on 05/10/2016. This was an exudate based on the proteins. Glucoses were the same as her blood glucoses and the pH was 8. This does not appear to be infected and probably originates from below the diaphragm. The patient's lung is reexpanded with removal of most of the pleural effusion. She does have some elevation of her left hemidiaphragm and this appears to be secondary to a large dilated stomach. 05/11/2016. At the time of my consultation on 05/10/2016 I felt these were her main problems : 1. Acute left pleural effusion. Etiology undetermined. Patient could have had pneumonia and this could be a parapneumonic effusion but she denies any symptoms of pneumonia. This effusion has developed since CT of the abdomen done 04/28/2016. I think we have to watch for left upper quadrant intra- abdominal abscess. Keep in mind entity such as pancreatitis. Thoracentesis done 05/10/2016 showed an exudate without any evidence of infection. Cytologies , Gram stain, bacterial cultures are pending. 2. Abnormal heart sounds. Etiology undetermined. Echocardiogram done 2015 showed mild left ventricular hypertrophy ejection fraction of 60% and mild mitral regurgitation. 3. Large uterus thought to be secondary to fibroids. May eventually need additional workup 4. Tobacco abuse. Stop smoking 04/28/2016. 5. Surgical removal of gangrenous appendix 04/28/2016. 05/15/2016. This patient continues have a left pleural effusion. This was an exudate. There was no evidence of infection. I am a little surprised that this is not resolved. I agree with surgery we can evaluate this with fiberoptic bronchoscopy which I will schedule for tomorrow morning. In the meantime I will get a CT scan of the lower chest and upper abdomen. White count is dropped 8971 segs 18 lymphs and 9 monocytes. H&H 10.1/32.7. Electrolytes are normal. Creatinine is 0.70. 05/16/2016. Patient's chest x-ray shows residual left pleural effusion. Will CT scan this appears to be loculated. There was no sub-diaphragmatic abscess seen. Patient does have a very large uterus. See report for additional details. Earlier today the patient was evaluated with fiberoptic bronchoscopy. She had evidence of bilateral aspiration injury that probably occurred before she had an appendectomy on 04/28/2016. See fiberoptic bronchoscopy dictation. See photographs on the reports. Patient still has some left pleuritic chest pain. She has not had a cough and she has not produced any significant amount of sputum. Post bronchoscopy by discussed the case with Dr. Lucio. At the present time will go to treat the pleural fluid conservatively. We will have to watch carefully make sure we do not get pleural scarring with entrapment of the lung. 05/17/2016. The patient is doing well this morning. FOB washings showed no organisms. Cytology from the washings was class I. No AFB or fungus was seen on smears. Because of her recent infection, we would recommend PenVK 500mg PO QID x 5 days at discharge. She states she thinks she will be discharged home tomorrow. CXR today is improved. 05/18/16. Ms. Graham is doing very well. She does report some diarrhea this morning, but states it is coming under control. She likes the Miralax because she states it doesn't make her stomach cramp. We discussed with her the need for iron replacement, but we want to hold off for the time being because of her recent intestinal issues. She understands this. We will reevaluate this at her follow-up appointment. She states that she has been told several times in the past that she had iron deficiency. Medications have been reviewed. We made no changes today. Labs have been reviewed. No new labs were drawn today. Exam (Progress Note) - Constitutional Vitals: Period Temp Pulse Resp BP Sys/Agudelo Pulse Ox Last 24 Hr 97.2 F-99.5 F 72-81 18-20 137-151/69-93 96-98 Exam: Chest is clear Heart no gallop Abd is post-surgical as per Dr. Lucio Ext with nothing to suggest acute DVT Psych oriented x 3 Neuro long tract motor function is intact Plan: At discharge, would recommend PenVK 500mg PO QID x 5 days. She has been scheduled for a follow-up appt with Eula May NP, at [facility] [place] for 06/07/16 at 1:00 with CXR. We will sign off. Please reconsult PRN. Results - Labs CBC & BMP: 05/16/16 05:08 05/14/16 05:20 Specialty Discharge - Follow Up or Referrals Follow up with: Michael Lucio MD [Physician] - 2 Weeks (See Dr Lucio or Clare in 2-3 weeks) Eula May CFNP [Advanced Practice Nurse] - (Scheduled for 06/07/16 at 1:00 with CXR...please make patient aware) - Discharge Medications No Action Ciprofloxacin Tab [Cipro Tab] 500 mg PO BID #14 tablet HYDROcodone/ACETAMIN 7.5-325 [[place] 7.5-325] 1 tablet PO Q6HR #20 tablet
--- NOTE | 2016-05-18 12:59 | Discharge Summary ---
Hospital Course - Hospital Course Hospital Course: Ms. Graham was hospitailized with abdominal pain. She underwent on the day of admission surgery with excision of a gangrenous appendix. She was treated postoperatively with antibiotics. She developed a left pleural effusion for which she underwent a bronchoscopy and thoracentesis. The pleural fluid was a n exudate but with no evidence of active infection. She experienced a postoperative ileus. By the time of her discharge, she was eating and moving her bowels without difficulty. Diagnosis - Discharge Diagnosis (1) Status post appendectomy Status: Chronic (2) Leukocytosis Status: Acute (3) Pleural effusion, left Status: Acute Specialty Discharge - Follow Up or Referrals Follow up with: Michael Lucio MD [Physician] - 2 Weeks (See Dr Lucio or Clare in 2-3 weeks) Eula May CFNP [Advanced Practice Nurse] - (Scheduled for 06/07/16 at 1:00 with CXR...please make patient aware) - Discharge Medications No Action Ciprofloxacin Tab [Cipro Tab] 500 mg PO BID #14 tablet HYDROcodone/ACETAMIN 7.5-325 [[place] 7.5-325] 1 tablet PO Q6HR #20 tablet Discharge Plan - Discharge Data Condition at Discharge: Stable Discharge Diet: advance to your usual diet Activity: resume usual activities as tolerated Hygiene: no restrictions - Discharge Medications New Docusate Sodium Cap [Colace Cap] 100 mg PO BID #60 capsule Polyethylene Glycol Powder [Miralax] 17 gm PO BID #1 powder Continue Ciprofloxacin Tab [Cipro Tab] 500 mg PO BID #14 tablet Discontinued HYDROcodone/ACETAMIN 7.5-325 [[place] 7.5-325] 1 tablet PO Q6HR #20 tablet - Follow Up or Referral Follow Up: Michael Lucio MD [Physician] - 2 Weeks (See Dr Lucio or Clare in 2-3 weeks) Eula May CFNP [Advanced Practice Nurse] - (Scheduled for 06/07/16 at 1:00 with CXR...please make patient aware) - Forms/Instructions Exam - Constitutional Vitals: Period Temp Pulse Resp BP Sys/Agudelo Pulse Ox Last 24 Hr 97.2 F-99.5 F 72-81 18-20 137-151/69-93 96-98 General appearance: no acute distress - Head Head exam: Present: normal inspection - Neck Neck exam: Present: normal inspection - Respiratory Respiratory exam: Present: clear to auscultation bilaterally - Cardiovascular Cardiovascular exam: Present: regular rate and rhythm - GI/Abdominal GI/Abdominal exam: Present: normal bowel sounds, soft, other (nontender) - Extremities Exam Extremities exam: Present: normal inspection - Skin Skin exam: Present: normal color Discharge Results Procedures and tests throughout hospitalization: Pending Orders 05/16/16 AFB Culture/Smears Stat Fungal Culture w/ Prep Stat 05/10/16 11:00 Cytology Request Routine DS: Provider Date of admission: 05/09/16 11:07 Primary care physician: Masood Camacho MD Attending physician on admission: Alecia Schafer MD Consults: 05/09/16 11:21 Consult to Physician [CONS] Routine Comment: Consulting Provider: Michael Lucio Date Notified: 05/09/16 Time Notified: 13:45 Consult Notification Comment: Bridge Attacher stated that consult had already been called. 05/09/16 11:24 Consult to Pharmacy [CONS] Routine Reason for Pharmacy Consult: Dose/Manage Antibiotics Comment: please adjust antibiotic doses for renal disease 05/09/16 13:04 Consult to Dietitian [CONS] Routine Reason for Dietitian: Dietary Consult 05/09/16 18:04 Consult to Physician [CONS] Routine Comment: Consulting Provider: Tony Briggs Consult to Specialist Group: Pulmonology When should Consulting Provider be notified: Mary Person Notified: FARNAZ Date Notified: 05/10/16 Time Notified: 07:13 Consult Notification Comment: Patient with left pleural effusion who is about 2 weeks from a lap appendectomy. CT scan of the abdomen did not suggest an abscess under the diaphragm area. It did look like there could be some atelectasis of the left lower lobe. Please evaluate for possible bronchoscopy 05/11/16 15:25 Consult to Physician [CONS] Routine Comment: abnormal uterus and vaginal bleeding Consulting Provider: Tony Armstrong Person Notified: Dr. Armstrong Date Notified: 05/11/16 Time Notified: 15:31 Consult Notification Comment: Said he will see patient on 05/12/16 Discharging clinician: Dayne Hickman Expected date of discharge: 05/18/16
[2016-05-18 13:44] VITALS: BP 142/87
[2016-05-18] MEDS: POLYETHYLENE GLYCOL POWDER 17 GM PACK PO SCH (13:45)
[2016-05-18] MEDS: DOCUSATE SODIUM 100 MG CAPSULE PO SCH (13:45)
== END 2016-05-18 14:32 | disposition home or self-care (01) | DRG 187 ==
LOC: EDBD → EDUNIT# → N.ED 08:29 → N.EDINP 11:07 → SUATTDRO 11:07 → N.EDINP 12:13 → N.2E 12:58
PROVIDERS: ADMIT Internal Medicine
PROC: IRTHORA (2016-05-10 14:15)